=== PATIENT | male | born 1940 | race Caucasian/White ===

== ENCOUNTER 2018-01-04 13:58 | Inpatient (IN) ==
[2018-01-04] MEDS ORDERED: 0.9 % Sodium Chloride 1,000 ML IVC ONE (14:16)
[2018-01-04 14:56] LABS: Basophils % 0.3 %; Eosinophils # 0.2 K/mcL (0.0-0.6); Eosinophils % 1.3 %; Hematocrit 39.6 % (37.5-50.1); Hemoglobin 12.8 g/dL (12.9-16.9); Immature Granulocytes % 0.4 % (0-4); Lymphocytes # 1.2 K/mcL (0.6-4.6); Mean Corpuscular HGB Conc 32.3 g/dL (31.6-35.5); Mean Corpuscular Hemoglobin 27.9 pg (28.0-33.3); Mean Corpuscular Volume 86.3 fL (83.0-100.0); Mean Platelet Volume 11.6 fL (9.4-12.4); Monocytes # 0.7 K/mcL (0.0-1.3); Monocytes % 5.3 %; Neutrophils # 11.2 K/mcL (1.6-8.9); Platelet Count 191 K/mcL (140-400); Red Blood Count 4.59 M/mcL (4.19-5.50); Red Cell Distribution Width 13.9 % (11.5-14.5); Segmented Neutrophils % 83.7 %
--- NOTE | 2018-01-04 15:00 | Emergency Department Note ---
Disposition Clinical Impression: Hospital-acquired pneumonia, EUNICE (acute kidney injury) Syncope Qualifiers: Syncope type: unspecified Qualified Code(s): R55 - Syncope and collapse Disposition: Admitted As Inpatient Condition: Good General Adult HPI - General Chief complaint: ED Syncope Stated complaint: tremors Time Seen by Provider: 01/04/18 14:05 Source: EMS - History of Present Illness Pain Scale: 0 - Related Data Home Medications Medication Instructions Recorded Confirmed Aspirin [Lo-Dose Aspirin EC] 81 mg PO DAILY 01/04/18 01/04/18 Atorvastatin [Lipitor] 10 mg PO HS 01/04/18 01/04/18 Calcium Carbonate/Vitamin D3 1 tab PO DAILY 01/04/18 01/04/18 [Calcium 600 + Vit D Tablet] Carvedilol [Coreg] 25 mg PO BID 01/04/18 01/04/18 Duloxetine HCl [Cymbalta] 60 mg PO DAILY 01/04/18 01/04/18 Ergocalciferol (VITAMIN D2) 50,000 unit PO QWEEK 01/04/18 01/04/18 [Vitamin D2] Fluticasone/Salmeterol [Advair 1 puff IH BID 01/04/18 01/04/18 250-50 Diskus] Gabapentin [Neurontin] 100 mg PO BID 01/04/18 01/04/18 Galantamine HBr [Razadyne ER] 16 mg PO DAILY 01/04/18 01/04/18 Levothyroxine Sodium [Levoxyl] 150 mcg PO QAM 01/04/18 01/04/18 Lisinopril [Zestril] 20 mg PO BID 01/04/18 01/04/18 Memantine HCl [Memantine HCl ER] 14 mg PO DAILY 01/04/18 01/04/18 Mv,Fe,Min/Lutein [A Thru Z Select 1 tab PO DAILY 01/04/18 01/04/18 Women's Tablet] Omeprazole [PriLOSEC] 20 mg PO DAILY 01/04/18 01/04/18 Potassium Chloride [Klor-Con 10] 10 meq PO BID 01/04/18 01/04/18 Tamsulosin HCl [Flomax] 0.4 mg PO DAILY 01/04/18 01/04/18 Allergies Allergy/AdvReac Type Severity Reaction Status Date / Time No Known Allergies Allergy Verified 01/04/18 14:21 Past Medical History - Past Medical History Medical history: Reports: COPD, coronary artery disease, dementia, GERD, hypertension, renal disease, thyroid disease Psychiatric history: Reports: anxiety, depression - Social History Smoking Status: Unknown if ever smoked Smokeless Tobacco Status: No Alcohol use: Reports: none Drug use: Reports: none Physical Exam - General General appearance: alert, in no apparent distress Course Vital Signs Temperature 98.3 F 01/04/18 14:20 Pulse Rate 56 01/04/18 14:20 Respiratory Rate 16 01/04/18 14:20 Blood Pressure 102/61 01/04/18 14:20 O2 Sat by Pulse Oximetry 98 01/04/18 14:20 Temperature 98.3 F 01/04/18 14:20 Pulse Rate 55 01/04/18 16:53 Respiratory Rate 16 01/04/18 17:41 Blood Pressure 122/56 01/04/18 17:41 O2 Sat by Pulse Oximetry 100 01/04/18 16:53 Oxygen Delivery Oxygen Delivery Room Air Medical Decision Making - Lab Data Result diagrams: 01/04/18 14:38 01/04/18 14:38 Lab Results 01/04/18 01/04/18 01/04/18 Range/Units 14:38 14:38 14:38 WBC 13.3 H (4.3-11.1) K/mcL RBC 4.59 (4.19-5.50) M/mcL Hgb 12.8 L (12.9-16.9) g/dL Hct 39.6 (37.5-50.1) % MCV 86.3 (83.0-100.0) fL MCH 27.9 L (28.0-33.3) pg MCHC 32.3 (31.6-35.5) g/dL RDW 13.9 (11.5-14.5) % Plt Count 191 (140-400) K/mcL MPV 11.6 (9.4-12.4) fL Immature Gran % 0.4 (0-4) % Seg Neutrophils % 83.7 % Lymphocytes % 9.0 % Monocytes % 5.3 % Eosinophils % 1.3 % Basophils % 0.3 % Neutrophils # 11.2 H (1.6-8.9) K/mcL Lymphocytes # 1.2 (0.6-4.6) K/mcL Monocytes # 0.7 (0.0-1.3) K/mcL Eosinophils # 0.2 (0.0-0.6) K/mcL Basophils # 0.0 (0.0-0.2) K/mcL PT 12.1 (9.4-12.1) Seconds INR 1.1 APTT 27.7 (26.0-36.0) Seconds Sodium 138 (136-145) mEq/L Potassium 4.9 (3.5-5.1) mEq/L Chloride 107 (98-107) mEq/L Carbon Dioxide 22 L (23-29) mEq/L BUN 25 H (8-23) mg/dL Creatinine 1.39 H (0.70-1.30) mg/dL Est GFR ( Amer) > 60 (> 60) Est GFR (Non-Af Amer) 50 L (> 60) BUN/Creatinine Ratio 18 (6-26) Glucose 138 H (70-105) mg/dL Calculated Osmolality 293 (280-300) Calcium 9.6 (8.6-10.3) mg/dL Total Bilirubin 0.5 (0.3-1.0) mg/dL Direct Bilirubin 0.0 (0.0-0.2) mg/dL Indirect Bilirubin 0.5 (0.0-1.2) mg/dL AST 11 L (13-39) Units/L ALT 10 (7-52) Units/L Alkaline Phosphatase 121 H (34-104) Units/L Troponin I < 0.03 (< 0.04) ng/mL Serum Total Protein 7.4 (6.4-8.9) g/dL Albumin 4.1 (3.5-5.7) g/dL Globulin 3.3 (2.4-3.5) g/dL Albumin/Globulin Ratio 1.2 (1.1-2.2) TSH 1.490 (0.340-5.600) mcIU/mL Attestation Statement - Attestation Attestation: I examined this patient and my medical decision-making was reviewed with the Resident Physician. I agree with the documented findings, disposition and treatment plan as described except to the extent set forth below. Patient presents to the ED after a syncopal episode. Patient had a syncopal episode after eating lunch at the [facility] today. He passed out sitting at the table. Patient has had tremor when aroused ever since the episode. Unknown medical history. No family present. He is awake on examination. Answers questions verbally. Does have some intermittent shaking of his arm and leg. Plan. Cardiac workup. Head CT. Head CT shows hygroma versus chronic subdural. Discussed with neurology who states nothing acute to do her no indication for transfer. Patient will be treated for hospital-acquired pneumonia. Patient also mentions a possibility of a heart transplant. There is no documentation of this in his senior care paperwork. We called every contact listed on his form with no answer. It does list on his paperwork that he has coronary disease. Question if his sternotomy scar is from a possible bypass surgery. Patient is admitted to hospitalist.
[2018-01-04 15:02] LABS: INR 1.1; Prothrombin Time 12.1 Seconds (9.4-12.1)
[2018-01-04 15:05] LABS: Activated Partial Thrombo Time 27.7 Seconds (26.0-36.0)
[2018-01-04 15:19] LABS: Troponin I < 0.03 ng/mL (< 0.04)
[2018-01-04 15:20] LABS: Alanine Aminotransferase 10 Units/L (7-52); Albumin 4.1 g/dL (3.5-5.7); Albumin/Globulin Ratio 1.2 (1.1-2.2); Alkaline Phosphatase 121 Units/L (34-104); Aspartate Amino Transferase 11 Units/L (13-39); BUN/Creatinine Ratio 18 (6-26); Bilirubin,Indirect 0.5 mg/dL (0.0-1.2); Bilirubin,Total 0.5 mg/dL (0.3-1.0); Blood Urea Nitrogen 25 mg/dL (8-23); Calcium 9.6 mg/dL (8.6-10.3); Carbon Dioxide 22 mEq/L (23-29); Chloride 107 mEq/L (98-107); Globulin 3.3 g/dL (2.4-3.5); Glucose 138 mg/dL (70-105); Osmolality,Calculated 293 (280-300); Potassium 4.9 mEq/L (3.5-5.1); Sodium 138 mEq/L (136-145); Total Protein 7.4 g/dL (6.4-8.9); eGFR For Non-African Americans 50 (> 60)
[2018-01-04] MEDS ORDERED: Levofloxacin 750 MG/150 ML 750 MG/150 ML BAG IVPB ONE (15:40)
[2018-01-04] MEDS ORDERED: Piperacillin/Tazobactam 3.375 GM in 0.9 % Sodium Chloride Mini Bag 100 ML IVPB ONE (15:40)
--- NOTE | 2018-01-04 16:01 | Emergency Department Note ---
Disposition Clinical Impression: Hospital-acquired pneumonia, EUNICE (acute kidney injury) Syncope Qualifiers: Syncope type: unspecified Qualified Code(s): R55 - Syncope and collapse Disposition: Admitted As Inpatient Condition: Good Time of Disposition: 16:55 General Adult HPI - General Chief complaint: ED Syncope Stated complaint: tremors Time Seen by Provider: 01/04/18 14:05 Source: EMS Mode of arrival: EMS Limitations: no limitations Nursing Notes Reviewed: Yes Vital Signs Reviewed: Yes - History of Present Illness HPI Narrative: Patient presenting to the ED via [facility] with the chief complaint of a syncopal episode. States that he was eating lunch and was then found slumped over his chair. States that he has a history of Alzheimer's and his mental status is alert and oriented 3 and is at baseline. However, since he woke up he has been having intermittent tremors in his upper and lower extremities. EMS reports that he seems sleepy and when he is startled he has these tremors. Patient denies any headache or chest pain. No shortness of breath. States he feels about baseline other than just tired. No abdominal pain, nausea, vomiting or diarrhea. Pain Scale: 0 - Related Data Allergies Allergy/AdvReac Type Severity Reaction Status Date / Time No Known Allergies Allergy Verified 01/04/18 14:21 Review of Systems: As reviewed in the HPI. All other systems reviewed are negative or normal. Past Medical History - Past Medical History Medical history: Reports: COPD, coronary artery disease, dementia, GERD, hypertension, renal disease, thyroid disease Psychiatric history: Reports: anxiety, depression - Social History Smoking Status: Unknown if ever smoked Smokeless Tobacco Status: No Alcohol use: Reports: none Drug use: Reports: none Physical Exam CONSTITUTIONAL: [Chronically ill appearing, alert and in no acute distress] EYES: [EOMI, clear conjunctiva, PERRLA] HENT: [Normocephalic, atraumatic, dry mucus membranes, normal oropharynx] NECK: [normal inspection, full ROM, trachea midline, no obvious swelling] PULMONARY: [normal lung sounds bilaterally, normal chest rise and fall, no respiratory distress or stridor, no wheezes, no rales, no rhonchi CARDIOVASCULAR: [regular rate, regular rhythm, distal extremities are warm and well perfused] GASTROINSTESTINAL: [soft, non-tender, non-rigid, non-distended, no guarding, no rebound, normal bowel sounds] GENITOURINARY/RECTAL: [deferred] NEUROLOGIC: [Alert, oriented x3, normal speech, moves all extremities, does have intermittent tremors of B/L upper and lower ext. does not seem to be intention or at rest and is spontaneous] EXTREMITIES: [Normal inspection, full ROM, no tenderness, no pedal edema, normal capillary refill] MUSCULOSKELETAL: [no gross deformities, atraumatic] SKIN: [No cyanosis, no diaphoresis, + pallor, warm, no rash] PSYCHIATRIC: [unable to evaluate] - General General appearance: alert, in no apparent distress Course Course Narrative: Patient presenting with syncopal episode and new onset tremor. We will get syncope workup and likely admit. We will also get a head CT. Patient is alert and oriented now. There is some question that he has had open heart surgery. Unsure if this is a bypass surgery, but the patient states that he had a "heart transplant" in [place] 3 years ago. There is no documentation of this in his record. Nursing staff made multiple attempts to contact the numbers on the patient's paperwork and no one has answered. Patient's vitals have looked okay and chest x-ray looks okay other than a possible left-sided pneumonia. This could be related to aspiration after a syncopal episode at lunch. We will treat him for hospital-acquired pneumonia until further evaluation can be made. - Reevaluation(s) Reevaluation #2: Patient admitted to the hospitalist service under Dr. Castaneda. - Consultations Consultation #1: I spoke with the on-call neurologist, Dr. Gilliland. States that the head CT finding is not acute and would not prohibit the patient from being admitted and worked up here. Time: 16:51 Vital Signs Temperature 98.3 F 01/04/18 14:20 Pulse Rate 56 01/04/18 14:20 Respiratory Rate 16 01/04/18 14:20 Blood Pressure 102/61 01/04/18 14:20 O2 Sat by Pulse Oximetry 98 01/04/18 14:20 Temperature 98.3 F 01/04/18 14:20 Pulse Rate 55 01/04/18 16:53 Respiratory Rate 16 01/04/18 17:41 Blood Pressure 122/56 01/04/18 17:41 O2 Sat by Pulse Oximetry 100 01/04/18 16:53 Oxygen Delivery Oxygen Delivery Room Air Medical Decision Making - Medical Records Medical records reviewed: Yes I reviewed the patient's medical records. - Lab Data Lab results reviewed: Yes I reviewed the patient's lab results. Result diagrams: 01/04/18 14:38 01/04/18 14:38 Lab Results 01/04/18 01/04/18 01/04/18 Range/Units 14:38 14:38 14:38 WBC 13.3 H (4.3-11.1) K/mcL RBC 4.59 (4.19-5.50) M/mcL Hgb 12.8 L (12.9-16.9) g/dL Hct 39.6 (37.5-50.1) % MCV 86.3 (83.0-100.0) fL MCH 27.9 L (28.0-33.3) pg MCHC 32.3 (31.6-35.5) g/dL RDW 13.9 (11.5-14.5) % Plt Count 191 (140-400) K/mcL MPV 11.6 (9.4-12.4) fL Immature Gran % 0.4 (0-4) % Seg Neutrophils % 83.7 % Lymphocytes % 9.0 % Monocytes % 5.3 % Eosinophils % 1.3 % Basophils % 0.3 % Neutrophils # 11.2 H (1.6-8.9) K/mcL Lymphocytes # 1.2 (0.6-4.6) K/mcL Monocytes # 0.7 (0.0-1.3) K/mcL Eosinophils # 0.2 (0.0-0.6) K/mcL Basophils # 0.0 (0.0-0.2) K/mcL PT 12.1 (9.4-12.1) Seconds INR 1.1 APTT 27.7 (26.0-36.0) Seconds Sodium 138 (136-145) mEq/L Potassium 4.9 (3.5-5.1) mEq/L Chloride 107 (98-107) mEq/L Carbon Dioxide 22 L (23-29) mEq/L BUN 25 H (8-23) mg/dL Creatinine 1.39 H (0.70-1.30) mg/dL Est GFR ( Amer) > 60 (> 60) Est GFR (Non-Af Amer) 50 L (> 60) BUN/Creatinine Ratio 18 (6-26) Glucose 138 H (70-105) mg/dL Calculated Osmolality 293 (280-300) Calcium 9.6 (8.6-10.3) mg/dL Total Bilirubin 0.5 (0.3-1.0) mg/dL Direct Bilirubin 0.0 (0.0-0.2) mg/dL Indirect Bilirubin 0.5 (0.0-1.2) mg/dL AST 11 L (13-39) Units/L ALT 10 (7-52) Units/L Alkaline Phosphatase 121 H (34-104) Units/L Troponin I < 0.03 (< 0.04) ng/mL Serum Total Protein 7.4 (6.4-8.9) g/dL Albumin 4.1 (3.5-5.7) g/dL Globulin 3.3 (2.4-3.5) g/dL Albumin/Globulin Ratio 1.2 (1.1-2.2) TSH 1.490 (0.340-5.600) mcIU/mL - Radiology Data Radiology results reviewed: Yes I reviewed the patient's radiology results. - EKG Data EKG #1 EKG attestation: Yes I reviewed and interpreted this EKG. EKG results narrative: Sinus bradycardia, rate 47, normal intervals, left axis deviation, left anterior fascicular block, poor R-wave progression, no previous available, no acute ischemic changes
[2018-01-04] MEDS ORDERED: Naloxone 0.4 MG/ML INJ IVP PRN (17:00)
--- NOTE | 2018-01-04 17:43 | Internal Med History&Physical ---
Date of Encounter: 01/04/18 Time of Encounter: 17:40 Internal Medicine - H&P: HPI Chief complaint: Slumped over at mealtime Admitted From: Long-term Nursing Facility Plans for Post Hospital Care: [facility] History of present illness: Mr. Jasmine is a 77 year old male who resides in a prison facility with medical history of Alzheimer's dementia, COPD, coronary artery disease, GERD, hypertension, chronic kidney disease and hypothyroidism amongst many other medical comorbidities. History obtained from the patient even though he has a history of depression, no family at the bedside. Poor documentation from prison facility. Per documentation from prison facility patient said to have been slumped over at mealtime, vitals at that time showed systolic blood pressure 80 diastolic blood pressure 50. The patient himself reports no history of syncope , however reports being tremulous and nervous and shaky around 1:30 PM today. He does not recall any palpitations, dizziness or feeling of impending doom or chest pain prior to this incident. He denies fever or chills, he denies cough, he denies a known history of seizures. The patient denies any changes in his urinary or bowel habits. Questionable reliability of history due to documented history of dementia from the alf charts. The patient is full code per chart from the alf. Workup in the ER reveals a left sided pneumonia and pleural effusion, cardiomegaly, head CT showed a questionable right cerebral subdural hygroma versus chronic subdural hematoma. EKG on presentation showed sinus bradycardia with a ventricular rate of 47. The patient has leukocytosis with left shift, and creatinine is 1.37, baseline is unknown. Patient will be admitted inpatient for workup and management of healthcare associated pneumonia, and syncope. Per Chart from alf the patient is full code Past Med Surg Social Fam HX - Past Medical History Medical history: COPD, coronary artery disease, dementia, GERD, hypertension, renal disease, thyroid disease Additional medical history: anemia Psychiatric history: anxiety, depression - Past Surgical History Additional surgical history: Heart Transplant - Social History Smoking Status: Unknown if ever smoked Smokeless Tobacco Status: No Alcohol use: none Drug use: none Internal Medicine - H&P: Meds Aspirin [Lo-Dose Aspirin EC] 81 mg PO DAILY 01/04/18 [History] Atorvastatin [Lipitor] 10 mg PO HS 01/04/18 [History] Calcium Carbonate/Vitamin D3 [Calcium 600 + Vit D Tablet] 1 tab PO DAILY [History] Carvedilol [Coreg] 25 mg PO BID 01/04/18 [History] Duloxetine HCl [Cymbalta] 60 mg PO DAILY 01/04/18 [History] Ergocalciferol (VITAMIN D2) [Vitamin D2] 50,000 unit PO QWEEK 01/04/18 [History] Fluticasone/Salmeterol [Advair 250-50 Diskus] 1 puff IH BID 01/04/18 [History] Gabapentin [Neurontin] 100 mg PO BID 01/04/18 [History] Galantamine HBr [Razadyne ER] 16 mg PO DAILY 01/04/18 [History] Levothyroxine Sodium [Levoxyl] 150 mcg PO QAM 01/04/18 [History] Lisinopril [Zestril] 20 mg PO BID 01/04/18 [History] Memantine HCl [Memantine HCl ER] 14 mg PO DAILY 01/04/18 [History] Mv,Fe,Min/Lutein [A Thru Z Select Women's Tablet] 1 tab PO DAILY 01/04/18 [ History] Omeprazole [PriLOSEC] 20 mg PO DAILY 01/04/18 [History] Potassium Chloride [Klor-Con 10] 10 meq PO BID 01/04/18 [History] Tamsulosin HCl [Flomax] 0.4 mg PO DAILY 01/04/18 [History] 3 Allergy/AdvReac Type Severity Reaction Status Date / Time No Known Allergies Allergy Verified 01/04/18 14:21 All Systems PM: A 10-system review of systems was performed and is negative for pertinent findings except as documented above in the HPI. - Constitutional Constitutional: as per HPI - EENT Eyes: as per HPI Ears: as per HPI Nose, mouth and throat: as per HPI - Cardiovascular Cardiovascular ROS IM: as per HPI - Respiratory Respiratory: as per HPI - Gastrointestinal Gastrointestinal: as per HPI - Musculoskeletal Musculoskeletal ROS IM: as per HPI - Integumentary Integumentary IM: as per HPI - Neurological Neurological ROS: as per HPI - Hematologic/Lymphatic Hematologic/Lymphatic: as per HPI - Constitutional Vitals: Temp Pulse Resp BP Pulse Ox 98.3 F 55 16 134/61 100 01/04/18 14:20 01/04/18 16:53 01/04/18 16:53 01/04/18 16:53 01/04/18 16:53 General: Not in any form of distress Head: atraumatic, normocephalic, Eye: normal appearance, PERRL, no scleral icterus, no conjunctival injection Neck: normal inspection, trachea midline, full ROM, no carotid bruits Respiratory: Good respiratory effort. Normal breath sounds. No wheezing or crackles. Cardiovascular: Regular rate and rhythm. S1 and S2, No clicks, rubs, gallops, or murmurs. No pedal edema. No JVD Abdomen: Abdomen is soft, non-tender, bowel sounds present in all quadrants. Musculoskeletal: Spontaneously moving all extremities, no signs of infection, no joint swelling Skin: No petechia or ecchymosis, no rash Neuro: Alert , oriented to time, place and person, normal cranial nerves, no focal deficits, moves all extremities spontaneously, gait not tested Psych: Patient's affect is normal Exam: General: Not in any form of distress Head: atraumatic, normocephalic, Eye: normal appearance, PERRL, no scleral icterus, no conjunctival injection Neck: normal inspection, trachea midline, full ROM, no carotid bruits Respiratory: Good respiratory effort. Normal breath sounds. No wheezing or crackles. Cardiovascular: Regular rate and rhythm. S1 and S2, No clicks, rubs, gallops, or murmurs. No pedal edema. No JVD Abdomen: Abdomen is soft, non-tender, bowel sounds present in all quadrants. Musculoskeletal: Spontaneously moving all extremities, no signs of infection, no joint swelling Skin: No petechia or ecchymosis, no rash Neuro: Alert , oriented to time, place and person, normal cranial nerves, no focal deficits, moves all extremities spontaneously, gait not tested Psych: Patient's affect is normal Internal Med - H&P Results - Labs CBC & Chem 7: 01/04/18 14:38 01/04/18 14:38 - Assessment and plan (1) Pneumonia Current Visit: Yes Status: Acute Assessment and plan: Patient reports history of tremulousness and shakiness, no fever, no cough However chest x-ray significant for suspected aspiration pneumonia Patient resides in a prison facility Blood culture have been drawn Received Levaquin, Zosyn and vancomycin in the ER Continue cefepime and vancomycin only. De-escalate antibiotics with culture reports. Obtain urine Legionella and streptococcal antigen. Patient is told hypoxic. Qualifiers: Pneumonia type: aspiration pneumonia Aspiration pneumonia type: unspecified Laterality: left Lung location: unspecified part of lung Qualified Code(s): J69.0 - Pneumonitis due to inhalation of food and vomit (2) Dementia Current Visit: Yes Status: Chronic Assessment and plan: Continue home medications Qualifiers: Dementia type: Alzheimer's disease Alzheimer's disease onset: unspecified onset Dementia behavioral disturbance: without behavioral disturbance Qualified Code(s): G30.9 - Alzheimer's disease, unspecified; F02.80 - Dementia in other diseases classified elsewhere without behavioral disturbance (3) Syncope Current Visit: Yes Status: Acute Assessment and plan: Etiology unknown. History of syncope is also questionable and not confirmed. Breathing M CAT scan noted for subdural hygroma versus chronic subdural hematoma. Obtain brain MRI EKG with sinus bradycardia patient is on beta blockers at home Obtain echocardiogram and carotid Doppler. Fall precautions Keep patient on telemetry Qualifiers: Syncope type: unspecified Qualified Code(s): R55 - Syncope and collapse (4) CKD (chronic kidney disease) Current Visit: Yes Status: Chronic Assessment and plan: Patient with known chronic kidney disease stage unknown Presenting creatinine 1.39 Obtain baseline from prison facility Avoid nephrotoxins Continue to monitor Qualifiers: Chronic kidney disease stage: unspecified stage Qualified Code(s): N18.9 - Chronic kidney disease, unspecified (5) COPD (chronic obstructive pulmonary disease) Current Visit: Yes Status: Chronic Assessment and plan: No signs of exacerbation at this time. Duo nebs when necessary Continue home MDIs Qualifiers: COPD type: unspecified COPD Qualified Code(s): J44.9 - Chronic obstructive pulmonary disease, unspecified (6) HTN (hypertension) Current Visit: Yes Status: Chronic Assessment and plan: continue home meds Qualifiers: Hypertension type: essential hypertension Qualified Code(s): I10 - Essential (primary) hypertension (7) HLD (hyperlipidemia) Current Visit: Yes Status: Chronic Assessment and plan: continue home meds Qualifiers: Hyperlipidemia type: unspecified Qualified Code(s): E78.5 - Hyperlipidemia , unspecified (8) Anemia Current Visit: Yes Status: Chronic Assessment and plan: HB baseline unknown Continue to monitor Qualifiers: Anemia type: unspecified type Qualified Code(s): D64.9 - Anemia, unspecified (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
[2018-01-04] MEDS: Gabapentin 100 MG CAPSULE PO SCH (21:24)
[2018-01-04] MEDS: Lisinopril 20 MG TABLET PO SCH (21:24)
[2018-01-04] MEDS ORDERED: Budesonide/Formoterol 80/4.5 MDI IH SCH (22:00)
[2018-01-05] MEDS: Cefepime HCl 1,000 MG in Water for inj. (sterile) 20 ML 10 ML IVP SCH ×3 (00:20→16:57)
[2018-01-05 00:43] LABS: Bilirubin,Urine Negative (Negative); Blood,Urine Negative (Negative); Clarity,Urine Clear (Clear); Color,Urine Yellow (Yellow); Glucose,Urine (UA) Normal (Normal); Ketones,Urine Negative (Negative); Leukocyte Esterase,Urine Small (Negative); Nitrite,Urine Negative (Negative); Protein,Urine Negative (Neg-Trace); Specific Gravity,Urine > 1.030 (1.010-1.025); Urobilinogen,Urine Normal (Normal)
[2018-01-05 00:45] LABS: Bacteria,Urine None Seen per hpf (None-Few); Hyaline Casts,Urine None Seen per lpf (None-Few); RBC,Urine 0-3 per hpf (0-3); Squamous Epithelial Cell,Urine Moderate per lpf (None-Few); WBC,Urine 15-30 per hpf (0-3)
[2018-01-05 05:03] LABS: Basophils % 0.3 %; Eosinophils # 0.4 K/mcL (0.0-0.6); Eosinophils % 3.4 %; Hematocrit 37.8 % (37.5-50.1); Hemoglobin 12.2 g/dL (12.9-16.9); Immature Granulocytes % 0.3 % (0-4); Lymphocytes # 1.9 K/mcL (0.6-4.6); Lymphocytes % 16.6 %; Mean Corpuscular HGB Conc 32.3 g/dL (31.6-35.5); Mean Corpuscular Hemoglobin 28.2 pg (28.0-33.3); Mean Corpuscular Volume 87.5 fL (83.0-100.0); Mean Platelet Volume 11.8 fL (9.4-12.4); Monocytes # 0.9 K/mcL (0.0-1.3); Monocytes % 8.1 %; Neutrophils # 8.2 K/mcL (1.6-8.9); Platelet Count 177 K/mcL (140-400); Red Blood Count 4.32 M/mcL (4.19-5.50); Segmented Neutrophils % 71.3 %
[2018-01-05 05:26] LABS: Potassium 4.8 mEq/L (3.5-5.1)
[2018-01-05] MEDS: *HR* Enoxaparin 40 MG/0.4 ML SYRINGE SQ SCH (06:07)
[2018-01-05] MEDS: Cholecalciferol (D-3) 1,000 UNIT TABLET PO SCH (09:53)
[2018-01-05] MEDS: Multivit/Ca/Min/Fe/FA 1 TAB TABLET PO SCH (09:53)
[2018-01-05] MEDS: Lisinopril 20 MG TABLET PO SCH ×2 (09:53→21:12)
[2018-01-05] MEDS: Gabapentin 100 MG CAPSULE PO SCH ×2 (09:54→21:12)
[2018-01-05] MEDS: Aspirin Enteric Coated 81 MG Tablet PO SCH (09:54)
[2018-01-05] MEDS: GALANTAMINE HBR 16 MG PO SCH (09:56)
--- NOTE | 2018-01-05 10:41 | Internal Med Progress Note ---
Hospitalist Progress Note - Encounter Date of Encounter: 01/05/18 Time of Encounter: 10:40 - Subjective Interval History: Seen and examined at the bedside No new complains No family at the bedside ECHO being done at time of eval - Exam Vitals: Temp Pulse Resp BP Pulse Ox 97.5 F L 63 18 142/76 98 01/05/18 08:20 01/05/18 08:20 01/05/18 08:20 01/05/18 08:20 01/05/18 08:20 Exam: General: Not in any form of distress Head: atraumatic, normocephalic, Eye: normal appearance, PERRL, no scleral icterus, no conjunctival injection Neck: normal inspection, trachea midline, full ROM, no carotid bruits Respiratory: Good respiratory effort. Normal breath sounds. No wheezing or crackles. Cardiovascular: Regular rate and rhythm. S1 and S2, No clicks, rubs, gallops, or murmurs. No pedal edema. No JVD Abdomen: Abdomen is soft, non-tender, bowel sounds present in all quadrants. Musculoskeletal: Spontaneously moving all extremities, no signs of infection, no joint swelling Skin: No petechia or ecchymosis, no rash Neuro: Alert , oriented to time, place and person, normal cranial nerves, no focal deficits, moves all extremities spontaneously, gait not tested Psych: Patient's affect is normal - Assessment and Plan (1) Pneumonia Current Visit: Yes Status: Acute Assessment and Plan: Patient reports history of tremulousness and shakiness, no fever, no cough However chest x-ray significant for suspected aspiration pneumonia Patient resides in a [facility] facility Blood culture have been drawn Received Levaquin, Zosyn and vancomycin in the ER Continue cefepime only. Low risk for MRSA patient is not septic or hypoxic De-escalate antibiotics with culture reports. Negative urine Legionella and streptococcal antigen (2) Dementia Current Visit: Yes Status: Chronic Assessment and Plan: Continue home medications (3) Syncope Current Visit: Yes Status: Acute Assessment and Plan: Etiology unknown. History of syncope is also questionable and not confirmed. Head CAT scan noted for subdural hygroma versus chronic subdural hematoma. Brain MRI with no infarct EKG with sinus bradycardia patient is on beta blockers at home Follow echocardiogram and carotid Doppler. Fall precautions Keep patient on telemetry (4) CKD (chronic kidney disease) Current Visit: Yes Status: Chronic Assessment and Plan: Patient with known chronic kidney disease stage unknown Presenting creatinine 1.39 Continue to monitor Avoid nephrotoxins Continue to monitor (5) COPD (chronic obstructive pulmonary disease) Current Visit: Yes Status: Chronic Assessment and Plan: No signs of exacerbation at this time. Duo nebs when necessary Continue home MDIs (6) HTN (hypertension) Current Visit: Yes Status: Chronic Assessment and Plan: continue home meds (7) HLD (hyperlipidemia) Current Visit: Yes Status: Chronic Assessment and Plan: continue home meds (8) Anemia Current Visit: Yes Status: Chronic Assessment and Plan: HB baseline unknown Continue to monitor (9) Subdural hygroma Current Visit: Yes Status: Chronic Assessment and Plan: brain MRI does not show this, no acute processes, on brain MRI Continue to monitor - Time Spent with Patient Total time spent is greater than 50% in coordination of care (as documented) at patient's floor/unit and/or counseling patient: Plan of Care Discussed with: patient Internal Medicine: Result - Labs CBC & Chem 7: 01/05/18 04:24 01/05/18 04:24 Labs: Short CBC 01/05/18 Range/Units 04:24 WBC 11.5 H (4.3-11.1) K/mcL Hgb 12.2 L (12.9-16.9) g/dL Hct 37.8 (37.5-50.1) % Plt Count 177 (140-400) K/mcL Neutrophils # 8.2 (1.6-8.9) K/mcL BMP 01/05/18 04:24 Sodium 139 Potassium 4.8 Chloride 109 H Carbon Dioxide 25 BUN 23 Creatinine 1.44 H Glucose 97 Calcium 9.0 Urine 01/05/18 Range/Units 00:02 Urine Color Yellow (Yellow) Urine Clarity Clear (Clear) Urine pH 6.0 (5.0-8.0) pH Units Ur Specific [place] > 1.030 H (1.010-1.025) Urine Protein Negative (Neg-Trace) mg/dL Urine Glucose (UA) Normal (Normal) mg/dL - ABG Interpretation ABG results: PT/INR, D-dimer PT 12.1 Seconds (9.4-12.1) 01/04/18 14:38 - Impressions Impressions Brain MRI 08/25/18 17:04 IMPRESSION: 1. No acute intracranial abnormality. No acute infarct. 2. [id number] global parenchymal volume loss with mild chronic microvascular ischemic change. 3. Right mastoid effusion. D/ / Gilbert Smith MD / Gilbert Smith MD Interpreting Provider: Gilbert Smith MD Consult Discharge Plan - Plan Referrals: NONE,PCP [Primary Care Provider] - (1) Pneumonia Qualifiers: Pneumonia type: aspiration pneumonia Aspiration pneumonia type: unspecified Laterality: left Lung location: unspecified part of lung Qualified Code(s): J69.0 - Pneumonitis due to inhalation of food and vomit (2) Dementia Qualifiers: Dementia type: Alzheimer's disease Alzheimer's disease onset: unspecified onset Dementia behavioral disturbance: without behavioral disturbance Qualified Code(s): G30.9 - Alzheimer's disease, unspecified; F02.80 - Dementia in other diseases classified elsewhere without behavioral disturbance (3) Syncope Qualifiers: Syncope type: unspecified Qualified Code(s): R55 - Syncope and collapse (4) CKD (chronic kidney disease) Qualifiers: Chronic kidney disease stage: unspecified stage Qualified Code(s): N18.9 - Chronic kidney disease, unspecified (5) COPD (chronic obstructive pulmonary disease) Qualifiers: COPD type: unspecified COPD Qualified Code(s): J44.9 - Chronic obstructive pulmonary disease, unspecified (6) HTN (hypertension) Qualifiers: Hypertension type: essential hypertension Qualified Code(s): I10 - Essential (primary) hypertension (7) HLD (hyperlipidemia) Qualifiers: Hyperlipidemia type: unspecified Qualified Code(s): E78.5 - Hyperlipidemia, unspecified (8) Anemia Qualifiers: Anemia type: unspecified type Qualified Code(s): D64.9 - Anemia, unspecified
[2018-01-06] MEDS: Cefepime HCl 1,000 MG in Water for inj. (sterile) 20 ML 10 ML IVP SCH ×2 (00:05→09:34)
[2018-01-06] MEDS: *HR* Enoxaparin 40 MG/0.4 ML SYRINGE SQ SCH (06:01)
[2018-01-06] MEDS: Budesonide/Formoterol 80/4.5 MDI IH SCH ×2 (07:52→19:57)
[2018-01-06] MEDS: Lisinopril 20 MG TABLET PO SCH ×2 (09:32→21:30)
[2018-01-06] MEDS: Cholecalciferol (D-3) 1,000 UNIT TABLET PO SCH (09:32)
[2018-01-06] MEDS: Multivit/Ca/Min/Fe/FA 1 TAB TABLET PO SCH (09:32)
[2018-01-06] MEDS: Aspirin Enteric Coated 81 MG Tablet PO SCH (09:32)
[2018-01-06] MEDS: Gabapentin 100 MG CAPSULE PO SCH ×2 (09:32→21:30)
[2018-01-06] MEDS: GALANTAMINE HBR 16 MG PO SCH (09:35)
[2018-01-06] MEDS ORDERED: levoFLOXacin 750 MG TABLET PO SCH (12:00)
--- NOTE | 2018-01-06 13:34 | Internal Med Progress Note ---
Hospitalist Progress Note - Encounter Date of Encounter: 01/06/18 Time of Encounter: 13:32 - Subjective Interval History: Seen and examined at the bedside No new complains No family at the bedside He was admitted for evaluation of syncope, incidental finding of PNA Per RN, patient sometimes looks like he is choking when taking his meds, Speech eval requested ECHO and Carotid doppler unremarkable Plan is to decrease dose of coreg, and change antibiotics to oral, SW eval for return to SNF - Exam Vitals: Temp Pulse Resp BP Pulse Ox 98.0 F 65 16 129/84 95 01/06/18 08:03 01/06/18 08:03 01/06/18 08:03 01/06/18 08:03 01/06/18 07:52 Exam: General: Not in any form of distress Head: atraumatic, normocephalic, Eye: normal appearance, PERRL, no scleral icterus, no conjunctival injection Neck: normal inspection, trachea midline, full ROM, no carotid bruits Respiratory: Good respiratory effort. Normal breath sounds. No wheezing or crackles. Cardiovascular: Regular rate and rhythm. S1 and S2, No clicks, rubs, gallops, or murmurs. No pedal edema. No JVD Abdomen: Abdomen is soft, non-tender, bowel sounds present in all quadrants. Musculoskeletal: Spontaneously moving all extremities, no signs of infection, no joint swelling Skin: No petechia or ecchymosis, no rash Neuro: Alert , oriented to time, place and person, normal cranial nerves, no focal deficits, moves all extremities spontaneously, gait not tested Psych: Patient's affect is normal - Assessment and Plan (1) Pneumonia Current Visit: Yes Status: Acute Assessment and Plan: Patient reports history of tremulousness and shakiness, no fever, no cough However chest x-ray significant for suspected aspiration pneumonia Patient resides in a residential facility Blood culture have been drawn-prelim negative Received Levaquin, Zosyn and vancomycin in the ER Cefepime given X2 days Low risk for MRSA patient is not septic or hypoxic Change to levaquin po Negative urine Legionella and streptococcal antigen (2) Dementia Current Visit: Yes Status: Chronic Assessment and Plan: Continue home medications (3) Syncope Current Visit: Yes Status: Acute Assessment and Plan: Etiology unknown. History of syncope is also questionable and not confirmed. Head CAT scan noted for subdural hygroma versus chronic subdural hematoma. Brain MRI with no infarct EKG with sinus bradycardia patient is on beta blockers at home ECHO and Carotid doppler unremarkable Fall precautions Keep patient on telemetry (4) CKD (chronic kidney disease) Current Visit: Yes Status: Chronic Assessment and Plan: Patient with known chronic kidney disease stage unknown Presenting creatinine 1.39 Continue to monitor Avoid nephrotoxins Continue to monitor (5) COPD (chronic obstructive pulmonary disease) Current Visit: Yes Status: Chronic Assessment and Plan: No signs of exacerbation at this time. Duo nebs when necessary Continue home MDIs (6) HTN (hypertension) Current Visit: Yes Status: Chronic Assessment and Plan: continue home meds (7) HLD (hyperlipidemia) Current Visit: Yes Status: Chronic Assessment and Plan: continue home meds (8) Anemia Current Visit: Yes Status: Chronic Assessment and Plan: HB baseline unknown Continue to monitor (9) Subdural hygroma Current Visit: Yes Status: Chronic Assessment and Plan: brain MRI does not show this, no acute processes, on brain MRI Continue to monitor - Time Spent with Patient Total time spent is greater than 50% in coordination of care (as documented) at patient's floor/unit and/or counseling patient: Plan of Care Discussed with: patient Internal Medicine: Result - Labs CBC & Chem 7: 01/05/18 04:24 01/05/18 04:24 - ABG Interpretation ABG results: PT/INR, D-dimer PT 12.1 Seconds (9.4-12.1) 01/04/18 14:38 - Impressions Impressions Echocardiogram 01/05/18 17:05 Impressions: LVEF 60%. Indeterminate diastolic function. Normal right ventricular structure and function. Possible bioprosthetic aortic valve with mild increase in gradients. Mild-moderate tricuspid regurgitation. No pulmonary hypertension by TR gradient provided. No prior echo for comparison. Left Ventricular Wall Motion: Rest Echo Findings All wall segments showed normal motion. Findings: Study Quality * Technically adequate exam. ECG Findings * Normal sinus rhythm. Left Ventricle * LVEF 60%. * Normal LV chamber size, wall thickness and function. * Indeterminate diastolic function. * No LVOTobstruction. Right Ventricle * Normal right ventricular structure and function. Left Atrium * Severely dilated left atrium. Right Atrium * Normal right atrial size. Mitral Valve * Normal mitral valve structure. * No mitral stenosis. * No mitral regurgitation. Aortic Valve * No aortic regurgitation. * Aortic valve not well visualized. * Possible bioprosthetic aortic valve with mild increase in gradients. Tricuspid Valve * Normal tricuspid valve structure. * Mild-moderate tricuspid regurgitation. Pulmonic Valve * Pulmonic valve is not well visualized. * No pulmonic stenosis. * No pulmonic regurgitation. Pulmonary Artery * Pulmonary artery not well visualized. Aorta * Normally sized aortic root. Pericardium * There is no pericardial effusion present. Interatrial Septum * Interatrial septum not well evaluated. IVC * The IVC is not well evaluated. Consult Discharge Plan - Plan Referrals: NONE,PCP [Non-Partnered Physician] - (1) Pneumonia Qualifiers: Pneumonia type: aspiration pneumonia Aspiration pneumonia type: unspecified Laterality: left Lung location: unspecified part of lung Qualified Code(s): J69.0 - Pneumonitis due to inhalation of food and vomit (2) Dementia Qualifiers: Dementia type: Alzheimer's disease Alzheimer's disease onset: unspecified onset Dementia behavioral disturbance: without behavioral disturbance Qualified Code(s): G30.9 - Alzheimer's disease, unspecified; F02.80 - Dementia in other diseases classified elsewhere without behavioral disturbance (3) Syncope Qualifiers: Syncope type: unspecified Qualified Code(s): R55 - Syncope and collapse (4) CKD (chronic kidney disease) Qualifiers: Chronic kidney disease stage: unspecified stage Qualified Code(s): N18.9 - Chronic kidney disease, unspecified (5) COPD (chronic obstructive pulmonary disease) Qualifiers: COPD type: unspecified COPD Qualified Code(s): J44.9 - Chronic obstructive pulmonary disease, unspecified (6) HTN (hypertension) Qualifiers: Hypertension type: essential hypertension Qualified Code(s): I10 - Essential (primary) hypertension (7) HLD (hyperlipidemia) Qualifiers: Hyperlipidemia type: unspecified Qualified Code(s): E78.5 - Hyperlipidemia, unspecified (8) Anemia Qualifiers: Anemia type: unspecified type Qualified Code(s): D64.9 - Anemia, unspecified
[2018-01-07 05:15] LABS: Basophils % 0.5 %; Eosinophils # 0.4 K/mcL (0.0-0.6); Eosinophils % 5.8 %; Hematocrit 35.9 % (37.5-50.1); Hemoglobin 11.5 g/dL (12.9-16.9); Immature Granulocytes % 0.3 % (0-4); Lymphocytes # 1.7 K/mcL (0.6-4.6); Mean Corpuscular Hemoglobin 28.3 pg (28.0-33.3); Mean Corpuscular Volume 88.2 fL (83.0-100.0); Mean Platelet Volume 11.9 fL (9.4-12.4); Monocytes # 0.7 K/mcL (0.0-1.3); Monocytes % 8.9 %; Neutrophils # 4.8 K/mcL (1.6-8.9); Platelet Count 182 K/mcL (140-400); Red Blood Count 4.07 M/mcL (4.19-5.50); Segmented Neutrophils % 62.5 %
[2018-01-07] MEDS: *HR* Enoxaparin 40 MG/0.4 ML SYRINGE SQ SCH (05:33)
[2018-01-07 05:37] LABS: Calcium 9.1 mg/dL (8.6-10.3); Potassium 4.1 mEq/L (3.5-5.1)
[2018-01-07 07:08] VITALS: BP 150/70
[2018-01-07] MEDS: Budesonide/Formoterol 80/4.5 MDI IH SCH (07:52)
--- NOTE | 2018-01-07 08:54 | Internal Med Progress Note ---
Hospitalist Progress Note - Encounter Date of Encounter: 01/07/18 - Exam Vitals: Temp Pulse Resp BP Pulse Ox 98.0 F 52 15 150/70 94 01/07/18 07:04 01/07/18 07:04 01/07/18 07:53 01/07/18 07:04 01/07/18 07:53 - Time Spent with Patient Total time spent is greater than 50% in coordination of care (as documented) at patient's floor/unit and/or counseling patient: Internal Medicine: Result - Labs CBC & Chem 7: 01/07/18 03:58 01/07/18 03:58 Labs: Short CBC 01/07/18 Range/Units 03:58 WBC 7.7 (4.3-11.1) K/mcL Hgb 11.5 L (12.9-16.9) g/dL Hct 35.9 L (37.5-50.1) % Plt Count 182 (140-400) K/mcL Neutrophils # 4.8 (1.6-8.9) K/mcL BMP 01/07/18 03:58 Sodium 141 Potassium 4.1 Chloride 109 H Carbon Dioxide 25 BUN 21 Creatinine 1.42 H Glucose 90 Calcium 9.1 - ABG Interpretation ABG results: PT/INR, D-dimer PT 12.1 Seconds (9.4-12.1) 01/04/18 14:38 Consult Discharge Plan - Plan Referrals: NONE,PCP [Non-Partnered Physician] -
[2018-01-07] MEDS: Gabapentin 100 MG CAPSULE PO SCH (09:57)
[2018-01-07] MEDS: Aspirin Enteric Coated 81 MG Tablet PO SCH (09:57)
[2018-01-07] MEDS: Multivit/Ca/Min/Fe/FA 1 TAB TABLET PO SCH (09:57)
[2018-01-07] MEDS: Lisinopril 20 MG TABLET PO SCH (09:57)
[2018-01-07] MEDS: Cholecalciferol (D-3) 1,000 UNIT TABLET PO SCH (09:58)
[2018-01-07] MEDS: GALANTAMINE HBR 16 MG PO SCH (09:58)
--- NOTE | 2018-01-07 13:09 | Discharge Summary ---
<Ron Oliva - Last Filed: 01/07/18 16:38> - NOTES TO OUTPATIENT PROVIDER Notes to Outpatient Provider: Mr. Jasmine was admitted for syncope workup and incidental PNA. Received 2 days of cefepime, de-escalated to levaquin; plan for outpatient antibiotics is 2 more doses of Levaquin 750mg, on the and 10 of January to complete his course. Date of Encounter: 01/07/18 Time of Encounter: 09:30 - Discharge Diagnosis (1) Pneumonia Priority: Primary Status: Acute Qualifiers: Pneumonia type: aspiration pneumonia Aspiration pneumonia type: unspecified Laterality: left Lung location: unspecified part of lung Qualified Code(s): J69.0 - Pneumonitis due to inhalation of food and vomit (2) Dementia Priority: Secondary Status: Chronic Qualifiers: Dementia type: Alzheimer's disease Alzheimer's disease onset: unspecified onset Dementia behavioral disturbance: without behavioral disturbance Qualified Code(s): G30.9 - Alzheimer's disease, unspecified; F02.80 - Dementia in other diseases classified elsewhere without behavioral disturbance (3) Syncope Priority: Secondary Status: Acute Qualifiers: Syncope type: unspecified Qualified Code(s): R55 - Syncope and collapse (4) CKD (chronic kidney disease) Priority: Secondary Status: Chronic Qualifiers: Chronic kidney disease stage: unspecified stage Qualified Code(s): N18.9 - Chronic kidney disease, unspecified (5) COPD (chronic obstructive pulmonary disease) Priority: Secondary Status: Chronic Qualifiers: COPD type: unspecified COPD Qualified Code(s): J44.9 - Chronic obstructive pulmonary disease, unspecified (6) HTN (hypertension) Priority: Secondary Status: Chronic Qualifiers: Hypertension type: essential hypertension Qualified Code(s): I10 - Essential (primary) hypertension (7) HLD (hyperlipidemia) Priority: Secondary Status: Chronic Qualifiers: Hyperlipidemia type: unspecified Qualified Code(s): E78.5 - Hyperlipidemia , unspecified (8) Anemia Priority: Secondary Status: Chronic Qualifiers: Anemia type: unspecified type Qualified Code(s): D64.9 - Anemia, unspecified Hospital course: Mr. Jasmine is a 77 year old male, medical history significant for SNF residence, AD, COPD, CAD, CKD; admitted for evaluation of syncope and incidental finding of PNA on exam. Patient did not demonstrate repeat of reported unresponsiveness on initial presentation from SNF, echocardiogram and carotid doppler negative. MRI without infarct. Patient tolerated meals without dysphagia. Swallow eval pending today prior to discharge. Urine negative for Legionella and strep antigen. Patient received Cefepime x 2 days on admission de -escalated to Levaquin po. CKD remained at baseline near 1.4, no sign of COPD exacerbation this admission. Mr. Jasmine will be returning to his previous SNF where he has placement--confirmed by manager social. He is being discharged with Coreg decreased to 12.5 BID from 25, as well as Levaquin (2 does) to be taken on 01/08 and 01/10 to complete his abx course. Discharge discussed with: patient, nurse, social work - Time Spent with Patient Total time spent providing and/or coordinating discharge services: Greater than 30 minutes - Discharge Medications Prescriptions: Carvedilol [Coreg] 12.5 mg PO BIDWM #60 tablet levoFLOXacin [Levaquin] 750 mg PO Q48H #2 tablet Home Medications: Atorvastatin [Lipitor] 10 mg PO HS 01/04/18 [History] Calcium Carbonate/Vitamin D3 [Calcium 600 + Vit D Tablet] 1 tab PO DAILY [History] Duloxetine HCl [Cymbalta] 60 mg PO DAILY 01/04/18 [History] Ergocalciferol (VITAMIN D2) [Vitamin D2] 50,000 unit PO QWEEK 01/04/18 [History] Fluticasone/Salmeterol [Advair 250-50 Diskus] 1 puff IH BID 01/04/18 [History] Gabapentin [Neurontin] 100 mg PO BID 01/04/18 [History] Galantamine HBr [Razadyne ER] 16 mg PO DAILY 01/04/18 [History] Levothyroxine Sodium [Levoxyl] 150 mcg PO QAM 01/04/18 [History] Lisinopril [Zestril] 20 mg PO BID 01/04/18 [History] Memantine HCl [Memantine HCl ER] 14 mg PO DAILY 01/04/18 [History] Mv,Fe,Min/Lutein [A Thru Z [employer] Tablet] 1 tab PO DAILY 01/04/18 [ History] Omeprazole [PriLOSEC] 20 mg PO DAILY 01/04/18 [History] Potassium Chloride [Klor-Con 10] 10 meq PO BID 01/04/18 [History] Aspirin Enteric Coated [Aspirin EC] 81 mg PO DAILY tablet. 01/07/18 [Rx] Atorvastatin [Lipitor] 10 mg PO HS tablet 01/07/18 [Rx] Carvedilol [Coreg] 12.5 mg PO BIDWM #60 tablet 01/07/18 [Rx] DULoxetine [Cymbalta] 60 mg PO DAILY capsule. 01/07/18 [Rx] Enoxaparin [Lovenox] 40 mg SQ 0600 syringe 01/07/18 [Rx] Tamsulosin [Flomax] 0.4 mg PO DAILY capsule 01/07/18 [Rx] levoFLOXacin [Levaquin] 750 mg PO Q48H #2 tablet 01/07/18 [Rx] Allergies/Adverse Reactions: 3 Allergy/AdvReac Type Severity Reaction Status Date / Time No Known Allergies Allergy Verified 01/04/18 14:21 Date of admission: 01/04/18 18:09 Primary care physician: Edwin Wolf MD Consults: 01/04/18 19:11 Consult to Nutrition [CONS] Routine Comment: Consulting Provider: NUTRITION Reason for Dietary Consult: MST Score Consult to [employer] [CONS] Routine Reason for SW Consult: patient from [place] 01/07/18 12:01 Consult to Speech Therapy [CONS] Routine Comment: Evaluate, develop and implement POC Reason for Consult: RN reporting repeat short duration dyspnea after PO meds , patient denying aspiration or choking, however history uncertain- AD patient. thank you. Call Completed: No Discharging clinician: Ron Oliva Anticipated date of discharge: 01/07/18 - Constitutional Vitals: Temp Pulse Resp BP Pulse Ox 98.0 F 52 15 150/70 94 01/07/18 07:04 01/07/18 07:04 01/07/18 07:53 01/07/18 07:04 01/07/18 07:53 General appearance: Present: pleasant, no acute distress, answers questions appropriately Exam: please see exam section - Head Head exam: Present: atraumatic - Neck Neck exam general surgery: Present: supple, trachea midline. Absent: lymphadenopathy - Respiratory Respiratory exam: Absent: accessory muscle use, rales, rhonchi, wheezes, tachypnea - Cardiovascular Cardiovascular exam: Present: bradycardia (Rate avg'ing in 50s - 60s), +S1, + S2. Absent: diastolic murmur, gallop, rubs, systolic murmur - GI/Abdominal GI/Abdominal exam: Present: normal bowel sounds, soft, no peritoneal signs. Absent: distended, tenderness - Psychiatric Psychiatric exam: Present: normal affect, normal mood - Patient Status Disposition: Transfer SNF Condition: Good Functional capacity at discharge: independent ambulation Overall status at discharge: patient is progressing back to baseline - Discharge Instructions Instructions: Levofloxacin (By mouth), Carvedilol (By mouth), Syncope (DC), Chronic Obstructive Pulmonary Disease (DC), Chronic Hypertension (DC), Anemia ( GEN), Pneumonia (DC) Follow Up With: NONE,PCP [Non-Partnered Physician] - - Diet and Activity Activity: increase activity as tolerated Diet: advance to your usual diet <Reynaldo Ram - Last Filed: 01/07/18 16:51> Date of Encounter: 01/07/18 - Discharge Diagnosis (1) Pneumonia Status: Acute Qualifiers: Pneumonia type: aspiration pneumonia Aspiration pneumonia type: unspecified Laterality: left Lung location: unspecified part of lung Qualified Code(s): J69.0 - Pneumonitis due to inhalation of food and vomit (2) Dementia Status: Chronic Qualifiers: Dementia type: Alzheimer's disease Alzheimer's disease onset: unspecified onset Dementia behavioral disturbance: without behavioral disturbance Qualified Code(s): G30.9 - Alzheimer's disease, unspecified; F02.80 - Dementia in other diseases classified elsewhere without behavioral disturbance (3) Syncope Status: Acute Qualifiers: Syncope type: unspecified Qualified Code(s): R55 - Syncope and collapse (4) CKD (chronic kidney disease) Status: Chronic Qualifiers: Chronic kidney disease stage: unspecified stage Qualified Code(s): N18.9 - Chronic kidney disease, unspecified (5) COPD (chronic obstructive pulmonary disease) Status: Chronic Qualifiers: COPD type: unspecified COPD Qualified Code(s): J44.9 - Chronic obstructive pulmonary disease, unspecified (6) HTN (hypertension) Status: Chronic Qualifiers: Hypertension type: essential hypertension Qualified Code(s): I10 - Essential (primary) hypertension (7) HLD (hyperlipidemia) Status: Chronic Qualifiers: Hyperlipidemia type: unspecified Qualified Code(s): E78.5 - Hyperlipidemia , unspecified (8) Anemia Status: Chronic Qualifiers: Anemia type: unspecified type Qualified Code(s): D64.9 - Anemia, unspecified (9) Subdural hygroma Status: Chronic Hospital course: Mr. Jasmine is a 77 year old male - Time Spent with Patient Total time spent providing and/or coordinating discharge services: Date of admission: 01/04/18 18:09 Primary care physician: Edwin Wolf MD Consults: 01/04/18 19:11 Consult to Nutrition [CONS] Routine Comment: Consulting Provider: NUTRITION Reason for Dietary Consult: MST Score Consult to [employer] [CONS] Routine Reason for SW Consult: patient from [place] - Constitutional Vitals: Temp Pulse Resp BP Pulse Ox 98.0 F 52 15 150/70 94 01/07/18 07:04 01/07/18 07:04 01/07/18 07:53 01/07/18 07:04 01/07/18 07:53 - Attending Attestation I have personally seen and examined this patient on 01/07/18 and reviewed her chart and labs, including medications, I have discussed plan of care with the resident physician, whose documentation reflect our plan of care. With the additions/exceptions set forth below.
--- NOTE | 2018-01-07 14:22 | Physician Discharge Referral ---
ExtendedCare Referral Info Transfer To: [facility] in [place], [place] Provider in Charge after Transfer: Other Institutional Level of Care: Skilled - Diagnosis (1) Pneumonia Priority: Primary Status: Acute (2) Dementia Priority: Secondary Status: Chronic (3) Syncope Priority: Secondary Status: Acute (4) CKD (chronic kidney disease) Priority: Secondary Status: Chronic (5) COPD (chronic obstructive pulmonary disease) Priority: Secondary Status: Chronic (6) HTN (hypertension) Priority: Secondary Status: Chronic (7) HLD (hyperlipidemia) Priority: Secondary Status: Chronic (8) Anemia Priority: Secondary Status: Chronic Expected Duration of Placement: Mr. Jasmine is a current long-term resident of [place] Prognosis: Fair Aware of Diagnosis: Patient Aware of Prognosis: Patient - Transfer Medications Prescriptions: Carvedilol [Coreg] 12.5 mg PO BIDWM #60 tablet levoFLOXacin [Levaquin] 750 mg PO Q48H #2 tablet Home Medications: Atorvastatin [Lipitor] 10 mg PO HS 01/04/18 [History] Calcium Carbonate/Vitamin D3 [Calcium 600 + Vit D Tablet] 1 tab PO DAILY [History] Duloxetine HCl [Cymbalta] 60 mg PO DAILY 01/04/18 [History] Ergocalciferol (VITAMIN D2) [Vitamin D2] 50,000 unit PO QWEEK 01/04/18 [History] Fluticasone/Salmeterol [Advair 250-50 Diskus] 1 puff IH BID 01/04/18 [History] Gabapentin [Neurontin] 100 mg PO BID 01/04/18 [History] Galantamine HBr [Razadyne ER] 16 mg PO DAILY 01/04/18 [History] Levothyroxine Sodium [Levoxyl] 150 mcg PO QAM 01/04/18 [History] Lisinopril [Zestril] 20 mg PO BID 01/04/18 [History] Memantine HCl [Memantine HCl ER] 14 mg PO DAILY 01/04/18 [History] Mv,Fe,Min/Lutein [A Thru Z Select Women's Tablet] 1 tab PO DAILY 01/04/18 [ History] Omeprazole [PriLOSEC] 20 mg PO DAILY 01/04/18 [History] Potassium Chloride [Klor-Con 10] 10 meq PO BID 01/04/18 [History] Aspirin Enteric Coated [Aspirin EC] 81 mg PO DAILY tablet. 01/07/18 [Rx] Atorvastatin [Lipitor] 10 mg PO HS tablet 01/07/18 [Rx] Carvedilol [Coreg] 12.5 mg PO BIDWM #60 tablet 01/07/18 [Rx] DULoxetine [Cymbalta] 60 mg PO DAILY capsule. 01/07/18 [Rx] Enoxaparin [Lovenox] 40 mg SQ 0600 syringe 01/07/18 [Rx] Tamsulosin [Flomax] 0.4 mg PO DAILY capsule 01/07/18 [Rx] levoFLOXacin [Levaquin] 750 mg PO Q48H #2 tablet 01/07/18 [Rx] Allergies/Adverse Reactions: 3 Allergy/AdvReac Type Severity Reaction Status Date / Time No Known Allergies Allergy Verified 01/04/18 14:21 - Respiratory Orders None Smoking Cessation: Smoking cessation has been advised. For more information, call the [place] Quit Line at [phone]. - Advance Directives Code Status: Full Code - Mobility Orders Ambulate - Rehabiliation Orders Rehab Potential: Fair - Treatments List/Other: Mr. Jasmine has two more doses of Levaquin to take: please take 1 tab on 01/08 and last tab on 01/10 (48hr later) - Diet Orders Regular CERTIFICATION: I certify that the transfer of the above named patient to an Extended Care Facility is necessary for the continuing treatment of the diagnosis listed. The above information is true and accurate reflection of patient's current condition. Confidential - Redisclosure prohibited without a patient's written consent.
--- NOTE | 2018-01-07 17:24 | Electrocardiograph Report ---
[address] [address] Test Date: 2018-01-04 Pat Name: Shahbaz Jasmine Department: [id number] Room: 2NE22 Gender: M Shade Hanger: : 1940 Requested By: [id number] Order Number: [id number] Reading MD: Pavel Piedra Measurements Intervals [place] Rate: 47 P: 63 DE: 173 QRS: -53 QRSD: 111 T: -56 QT: 453 QTc: 401 Interpretive Statements Sinus bradycardia Left anterior fascicular block Inferior and anterolateral T wave changes possibly due to ischemia Electronically Signed On 01-07-2018 17:22:40 EDT by Pavel Piedra
== END 2018-01-07 18:05 | DRG 178 ==
LOC: SUATTDRO → EMEROOARM 13:58 → 2NENU 13:58 → SUATTDRO 18:09
PROVIDERS: ADMIT Internal Medicine; ATTEND Internal Medicine

== ENCOUNTER 2018-05-29 03:46 | Inpatient (IN) ==
[2018-05-29] MEDS ORDERED: Tdap (Boostrix) Vaccine 0.5 ML SYRINGE IM ONE (04:12)
[2018-05-29] MEDS ORDERED: Lidocaine/EPI 1:100k 1% 30 ML VIAL INFILT ONE (04:12)
[2018-05-29] MEDS ORDERED: 0.9 % Sodium Chloride 500 ML IVC ONE ×3 (04:14→06:30)
--- NOTE | 2018-05-29 04:17 | Emergency Department Note ---
Disposition Clinical Impression: Bradycardia, HCAP (healthcare-associated pneumonia), EUNICE (acute kidney injury) Hypotension Qualifiers: Hypotension type: unspecified hypotension type Qualified Code(s): I95.9 - Hypotension, unspecified Fall Qualifiers: Encounter type: initial encounter Qualified Code(s): W19.XXXA - Unspecified fall, initial encounter Facial laceration Qualifiers: Encounter type: initial encounter Qualified Code(s): S01.81XA - Laceration without foreign body of other part of head, initial encounter Disposition: Admitted As Inpatient Condition: Serious Referrals: NONE,PCP [Primary Care Provider] - Forms: ED Satisfaction Letter Fall HPI - General Chief Complaint: ED Fall Stated Complaint: fall Time Seen by Provider: 05/29/18 04:09 Source: patient, EMS Mode of arrival: EMS Limitations: other Nursing Notes Reviewed: Yes Vital Signs Reviewed: Yes - History of Present Illness HPI Narrative: 77-year-old male history of hypertension, hyperlipidemia, hypothyroidism, aortic valve disease who presents to the ER from his nursing facility via EMS with a complaint of fall and head injury. Injury occurred just prior to arrival. The patient was unwitnessed. Staff heard him fall in the adjacent room. No pro longed downtime. Unsure if there were any symptoms prior to the fall. Patient was noted to have a laceration around his right eyebrow with bleeding controlled prior to arrival. He is amnestic to what happened this evening. No complaints at this time. Pt Subjective Complaint: fall Onset (ago): Just [employer] Fall Witnessed: no Place Fall Occurred: half-way/SNF Loss of Consciousness: unsure Prolonged Down Time?: no Symptoms Prior to Fall: other (unknown) Location of injury: face - Related Data Home Medications Medication Instructions Recorded Confirmed Atorvastatin [Lipitor] 10 mg PO HS 01/04/18 01/04/18 Calcium Carbonate/Vitamin D3 1 tab PO DAILY 01/04/18 01/04/18 [Calcium 600 + Vit D Tablet] Duloxetine HCl [Cymbalta] 60 mg PO DAILY 01/04/18 01/04/18 Ergocalciferol (VITAMIN D2) 50,000 unit PO QWEEK 01/04/18 01/04/18 [Vitamin D2] Fluticasone/Salmeterol [Advair 1 puff IH BID 01/04/18 01/04/18 250-50 Diskus] Gabapentin [Neurontin] 100 mg PO BID 01/04/18 01/04/18 Galantamine HBr [Razadyne ER] 16 mg PO DAILY 01/04/18 01/04/18 Levothyroxine Sodium [Levoxyl] 150 mcg PO QAM 01/04/18 01/04/18 Lisinopril [Zestril] 20 mg PO BID 01/04/18 01/04/18 Memantine HCl [Memantine HCl ER] 14 mg PO DAILY 01/04/18 01/04/18 Mv,Fe,Min/Lutein [A Thru Z Select 1 tab PO DAILY 01/04/18 01/04/18 Women's Tablet] Omeprazole [PriLOSEC] 20 mg PO DAILY 01/04/18 01/04/18 Potassium Chloride [Klor-Con 10] 10 meq PO BID 01/04/18 01/04/18 Previous Rx's Medication Instructions Recorded Aspirin Enteric Coated [Aspirin EC] 81 mg PO DAILY tablet. 01/07/18 Carvedilol [Coreg] 12.5 mg PO BIDWM #60 tablet 01/07/18 Tamsulosin [Flomax] 0.4 mg PO DAILY capsule 01/07/18 Allergies Allergy/AdvReac Type Severity Reaction Status Date / Time No Known Allergies Allergy Verified 01/04/18 14:21 All systems ED: reviewed and negative except as stated. Cardiovascular: Denies: chest pain Respiratory: Denies: dyspnea Gastrointestinal: Denies: abdominal pain Neurological: Reports: headache. Denies: numbness, paresthesias Fall PMH - Past Medical History Medical history: Reports: COPD, coronary artery disease, dementia, GERD, hyperlipidemia, hypertension, renal disease, thyroid disease Psychiatric history: Reports: anxiety, depression - Social History Smoking Status: Never smoker Alcohol use: Reports: none Drug use: Reports: none Physical Exam - General Limitations: altered mental status General appearance: alert, in no apparent distress - Head Head exam: other (approximate 1cm laceration superior to the L medial eyelid) - Eye Eye exam: Present: normal appearance - ENT ENT exam: normal exam - Neck Neck exam: Present: normal inspection, other (C spine immobilized). Absent: tenderness - Chest Chest inspection: Present: normal inspection, symmetric chest wall rise - Respiratory Respiratory exam: Present: normal lung sounds bilaterally - Cardiovascular Cardiovascular exam: Present: normal rhythm, bradycardia, normal heart sounds - Abdominal Exam Abdominal exam: Present: soft, Non-Tender, other (shingles to the RUQ and R flank). Absent: tenderness, distention, guarding, rigidity - Extremities Exam Extremities exam: Present: normal inspection, full ROM - Expanded Upper Extremity Exam Shoulder exam: Present: normal inspection, full ROM Arm exam: Present: normal inspection, full ROM Elbow exam: Present: normal inspection, full ROM Forearm/Wrist exam: Present: normal inspection, full ROM Hand exam: Present: normal inspection, full ROM - Expanded Lower Extremity Exam Hip/Pelvis exam: Present: normal inspection, full ROM Upper leg exam: Present: normal inspection, full ROM Knee exam: Present: normal inspection, full ROM Lower leg exam: Present: normal inspection, full ROM Ankle exam: Present: normal inspection, full ROM Foot/toe exam: Present: normal inspection, full ROM - Neurological Exam Neurological exam: Present: alert - Expanded Neurological Exam Speech: Present: fluid speech Motor strength - LUE: 4/5 Motor strength - RUE: 4/5 Motor strength - LLE: 4/5 Motor strength - RLE: 4/5 Sensory exam upper extremity: light touch: Normal Sensory exam lower extremity: light touch: Normal Coma Scale Eye Opening: Spontaneous Coma Scale Motor Response: Obeys Commands Coma Scale Verbal Response: Confused Coma Scale Total: 14 - Skin Skin exam: Present: warm, dry Course Course Narrative: Patient seen and examined. Vital signs reviewed. Noted to be hypotensive here as well as bradycardic. Plan for CT imaging of the head and cervical spine, EKG, chest x-ray, labs and likely admission for fall with suspicion that it was a syncopal episode secondary to his hypotension. - Reevaluation(s) Reevaluation #1: Patient remains hypotensive despite first fluid bolus. Second fluid bolus ordered. Reevaluation #2: Remains to have marginal blood pressure readings. He was difficult to obtain access initially. Plan to place a central line. Please chest x-ray represents pneumonia. Plan for broad-spectrum antibiotic coverage vancomycin and Zosyn and Levaquin. He is also noted to be in acute renal failure. Vital Signs Temperature 97.8 F 05/29/18 03:50 Pulse Rate 54 05/29/18 03:50 Respiratory Rate 16 05/29/18 03:50 Blood Pressure 85/52 05/29/18 03:50 O2 Sat by Pulse Oximetry 94 05/29/18 03:50 Temperature 97.8 F 05/29/18 03:50 Pulse Rate 57 05/29/18 06:24 Respiratory Rate 20 05/29/18 06:24 Blood Pressure 106/56 05/29/18 06:24 O2 Sat by Pulse Oximetry 98 05/29/18 06:24 Oxygen Delivery Oxygen Delivery Room Air Fall - [facility] Narrative Medical decision making narrative: 77-year-old male presenting due to fall. Found to be hypotensive here on arrival. In his workup is noted to have a left sided pneumonia. He was high this intensive despite gentle fluid resuscitation. He has noted also have acute renal failure with a creatinine of 5. Potassium of 5 without EKG changes. Leukocytosis with left shift with a normal lactate. Blood cultures obtained. Broad-spectrum antibiotics initiated. Patient admitted to the hospitalist service. - Lab Data Lab results reviewed: Yes I reviewed the patient's lab results. Result diagrams: 05/29/18 05:27 05/29/18 05:27 Lab Results 05/29/18 05/29/18 05/29/18 Range/Units 05:27 05:27 05:27 WBC 14.9 H (4.3-11.1) K/mcL RBC 4.35 (4.19-5.50) M/mcL Hgb 11.7 L (12.9-16.9) g/dL Hct 38.1 (37.5-50.1) % MCV 87.6 (83.0-100.0) fL MCH 26.9 L (28.0-33.3) pg MCHC 30.7 L (31.6-35.5) g/dL RDW 16.1 H (11.5-14.5) % Plt Count 243 (140-400) K/mcL MPV 11.3 (9.4-12.4) fL Immature Gran % 0.5 (0-4) % Seg Neutrophils % 85.4 % Lymphocytes % 7.2 % Monocytes % 5.8 % Eosinophils % 0.9 % Basophils % 0.2 % Neutrophils # 12.7 H (1.6-8.9) K/mcL Lymphocytes # 1.1 (0.6-4.6) K/mcL Monocytes # 0.9 (0.0-1.3) K/mcL Eosinophils # 0.1 (0.0-0.6) K/mcL Basophils # 0.0 (0.0-0.2) K/mcL PT 12.7 H (9.4-12.1) Seconds INR 1.1 APTT 26.7 (26.0-36.0) Seconds Sodium 136 (136-145) mEq/L Potassium 5.0 (3.5-5.1) mEq/L Chloride 106 (98-107) mEq/L Carbon Dioxide 20 L (23-29) mEq/L BUN 60 H (8-23) mg/dL Creatinine 4.98 H (0.70-1.30) mg/dL Est GFR ( Amer) 14 L (> 60) Est GFR (Non-Af Amer) 11 L (> 60) BUN/Creatinine Ratio 12 (6-26) Glucose 146 H (70-105) mg/dL Calculated Osmolality 302 H (280-300) Lactic Acid (0.5-2.2) mmol/L Calcium 9.0 (8.6-10.3) mg/dL Troponin I 0.03 (< 0.04) ng/mL Urine Color (Yellow) Urine Clarity (Clear) Urine pH (5.0-8.0) pH Units Ur Specific Martell (1.010-1.025) Urine Protein (Neg-Trace) mg/dL Urine Glucose (UA) (Normal) mg/dL Urine Ketones (Negative) mg/dL Urine Blood (Negative) Urine Nitrite (Negative) Urine Bilirubin (Negative) Urine Urobilinogen (Normal) mg/dL Ur Leukocyte Esterase (Negative) Urine Microscopic RBC (0-3) per hpf Urine Microscopic WBC (0-3) per hpf Ur Squamous Epith Cells (None-Few) per lpf Amorphous Sediment (Few) Urine Bacteria (None-Few) per hpf Hyaline Casts (None-Few) per lpf Urine Mucus (Few) Urine Yeast (None Seen) per hpf 05/29/18 05/29/18 Range/Units 05:27 05:40 WBC (4.3-11.1) K/mcL RBC (4.19-5.50) M/mcL Hgb (12.9-16.9) g/dL Hct (37.5-50.1) % MCV (83.0-100.0) fL MCH (28.0-33.3) pg MCHC (31.6-35.5) g/dL RDW (11.5-14.5) % Plt Count (140-400) K/mcL MPV (9.4-12.4) fL Immature Gran % (0-4) % Seg Neutrophils % % Lymphocytes % % Monocytes % % Eosinophils % % Basophils % % Neutrophils # (1.6-8.9) K/mcL Lymphocytes # (0.6-4.6) K/mcL Monocytes # (0.0-1.3) K/mcL Eosinophils # (0.0-0.6) K/mcL Basophils # (0.0-0.2) K/mcL PT (9.4-12.1) Seconds INR APTT (26.0-36.0) Seconds Sodium (136-145) mEq/L Potassium (3.5-5.1) mEq/L Chloride (98-107) mEq/L Carbon Dioxide (23-29) mEq/L BUN (8-23) mg/dL Creatinine (0.70-1.30) mg/dL Est GFR ( Amer) (> 60) Est GFR (Non-Af Amer) (> 60) BUN/Creatinine Ratio (6-26) Glucose (70-105) mg/dL Calculated Osmolality (280-300) Lactic Acid 0.8 (0.5-2.2) mmol/L Calcium (8.6-10.3) mg/dL Troponin I (< 0.04) ng/mL Urine Color Dark Yellow (Yellow) Urine Clarity Cloudy A (Clear) Urine pH 5.0 (5.0-8.0) pH Units Ur Specific Martell 1.022 (1.010-1.025) Urine Protein Trace (Neg-Trace) mg/dL Urine Glucose (UA) Normal (Normal) mg/dL Urine Ketones Trace H (Negative) mg/dL Urine Blood Negative (Negative) Urine Nitrite Negative (Negative) Urine Bilirubin Small H (Negative) Urine Urobilinogen Normal (Normal) mg/dL Ur Leukocyte Esterase Trace H (Negative) Urine Microscopic RBC 3-5 H (0-3) per hpf Urine Microscopic WBC 3-5 H (0-3) per hpf Ur Squamous Epith Cells Many H (None-Few) per lpf Amorphous Sediment Moderate H (Few) Urine Bacteria Few (None-Few) per hpf Hyaline Casts Many H (None-Few) per lpf Urine Mucus Moderate H (Few) Urine Yeast Few H (None Seen) per hpf - Radiology Data Radiology results reviewed: Yes I reviewed the patient's radiology results. Chest X-Ray 05/29/18 04:09 IMPRESSION: Increasing airspace opacification in the left lower lung zone. This is suspected to represent atelectasis. Asymmetric edema or developing pneumonitis can not be excluded. D/ / Ayaz Rice MD / Ayaz Rice MD Interpreting Provider: Ayaz Rice MD Cervical Spine CT 05/29/18 04:11 IMPRESSION: No acute abnormality of the cervical spine. D/ / Ayaz Rice MD / Ayaz Rice MD Interpreting Provider: Ayaz Rice MD Head CT 05/29/18 04:11 IMPRESSION: 1. No acute intracranial abnormality. 2. Stable atrophy and chronic small vessel ischemic changes. Atrophy is somewhat asymmetric in the right cerebral hemisphere. D/ / Ayaz Rice MD / Ayaz Rice MD Interpreting Provider: Ayaz Rice MD - EKG Data EKG attestation: Yes I reviewed and interpreted this EKG. EKG results narrative: EKG demonstrates sinus bradycardia with IVCD with a rate of 54 beats per minute. LAD. Prolonged QRS duration of 139, other intervals normal. Normal R wave progression. No gross ST elevations or depressions. T waves inversions in leads 3, avF, V3-V5. No significant changes from prior EKG dated 01/04/18 S.B.A.R. - S.B.A.R. Situation: Demographics, MOA Background: Presenting Complaint, Relevant PMH, Meds, & Allergies Assessment: Vital Signs, Course and respsone to treatment, Exam Concerns, Patient/Family Expectation, Pertinant Lab Results Recommendation: Barrier(s) to disposition, Recommendation based on pending studies, treatments, or consults Christine Report Given to: Dr. Oskar King Repor Time: 06:58
[2018-05-29] MEDS ORDERED: Piperacillin/Tazobactam 3.375 GM in 0.9 % Sodium Chloride Mini Bag 100 ML IVPB ONE (05:11)
[2018-05-29] MEDS ORDERED: Levofloxacin 750 MG/150 ML 750 MG/150 ML BAG IVPB ONE (05:11)
--- NOTE | 2018-05-29 05:26 | Emergency Department Note ---
Disposition Clinical Impression: Bradycardia, HCAP (healthcare-associated pneumonia) Hypotension Qualifiers: Hypotension type: unspecified hypotension type Qualified Code(s): I95.9 - Hypotension, unspecified Fall Qualifiers: Encounter type: initial encounter Qualified Code(s): W19.XXXA - Unspecified fall, initial encounter Facial laceration Qualifiers: Encounter type: initial encounter Qualified Code(s): S01.81XA - Laceration without foreign body of other part of head, initial encounter Disposition: Still a Patient Condition: Serious Referrals: NONE,PCP [Primary Care Provider] - Forms: ED Satisfaction Letter Fall HPI - General Chief Complaint: ED Fall Stated Complaint: fall Time Seen by Provider: 05/29/18 04:09 Source: patient, EMS Mode of arrival: EMS - History of Present Illness Place Fall Occurred: usp/SNF - Related Data Home Medications Medication Instructions Recorded Confirmed Atorvastatin [Lipitor] 10 mg PO HS 01/04/18 01/04/18 Calcium Carbonate/Vitamin D3 1 tab PO DAILY 01/04/18 01/04/18 [Calcium 600 + Vit D Tablet] Duloxetine HCl [Cymbalta] 60 mg PO DAILY 01/04/18 01/04/18 Ergocalciferol (VITAMIN D2) 50,000 unit PO QWEEK 01/04/18 01/04/18 [Vitamin D2] Fluticasone/Salmeterol [Advair 1 puff IH BID 01/04/18 01/04/18 250-50 Diskus] Gabapentin [Neurontin] 100 mg PO BID 01/04/18 01/04/18 Galantamine HBr [Razadyne ER] 16 mg PO DAILY 01/04/18 01/04/18 Levothyroxine Sodium [Levoxyl] 150 mcg PO QAM 01/04/18 01/04/18 Lisinopril [Zestril] 20 mg PO BID 01/04/18 01/04/18 Memantine HCl [Memantine HCl ER] 14 mg PO DAILY 01/04/18 01/04/18 Mv,Fe,Min/Lutein [A Thru Z Select 1 tab PO DAILY 01/04/18 01/04/18 Women's Tablet] Omeprazole [PriLOSEC] 20 mg PO DAILY 01/04/18 01/04/18 Potassium Chloride [Klor-Con 10] 10 meq PO BID 01/04/18 01/04/18 Previous Rx's Medication Instructions Recorded Aspirin Enteric Coated [Aspirin EC] 81 mg PO DAILY tablet. 01/07/18 Atorvastatin [Lipitor] 10 mg PO HS tablet 01/07/18 Carvedilol [Coreg] 12.5 mg PO BIDWM #60 tablet 01/07/18 DULoxetine [Cymbalta] 60 mg PO DAILY capsule. 01/07/18 Enoxaparin [Lovenox] 40 mg SQ 0600 syringe 01/07/18 Tamsulosin [Flomax] 0.4 mg PO DAILY capsule 01/07/18 levoFLOXacin [Levaquin] 750 mg PO Q48H #2 tablet 01/07/18 Allergies Allergy/AdvReac Type Severity Reaction Status Date / Time No Known Allergies Allergy Verified 01/04/18 14:21 Cardiovascular: Denies: chest pain Respiratory: Denies: dyspnea Gastrointestinal: Denies: abdominal pain Neurological: Reports: headache. Denies: numbness, paresthesias Fall PMH - Past Medical History Medical history: Reports: COPD, coronary artery disease, dementia, GERD, hyperlipidemia, hypertension, renal disease, thyroid disease Psychiatric history: Reports: anxiety, depression - Social History Smoking Status: Never smoker Alcohol use: Reports: none Drug use: Reports: none Physical Exam - General Limitations: altered mental status General appearance: alert, in no apparent distress Course Vital Signs Temperature 97.8 F 05/29/18 03:50 Pulse Rate 54 05/29/18 03:50 Respiratory Rate 16 05/29/18 03:50 Blood Pressure 85/52 05/29/18 03:50 O2 Sat by Pulse Oximetry 94 05/29/18 03:50 Temperature 97.8 F 05/29/18 03:50 Pulse Rate 54 05/29/18 05:19 Respiratory Rate 16 05/29/18 05:19 Blood Pressure 102/64 05/29/18 05:19 O2 Sat by Pulse Oximetry 98 05/29/18 05:19 Oxygen Delivery Oxygen Delivery Room Air Procedures - Laceration Laceration 1 Site: face Side (If applicable): right Description: linear Depth: simple, single layer Local Anesthetic: lidocaine 1% Amount of Anesthesia Used (mL): 1 Pre-repair: irrigated extensively Skin layer closed with: nylon Size: 5-0 Number of sutures/luis manuel: 2 Technique: simple, interrupted
[2018-05-29 05:44] LABS: Basophils % 0.2 %; Eosinophils # 0.1 K/mcL (0.0-0.6); Eosinophils % 0.9 %; Hematocrit 38.1 % (37.5-50.1); Hemoglobin 11.7 g/dL (12.9-16.9); Immature Granulocytes % 0.5 % (0-4); Lymphocytes # 1.1 K/mcL (0.6-4.6); Lymphocytes % 7.2 %; Mean Corpuscular HGB Conc 30.7 g/dL (31.6-35.5); Mean Corpuscular Hemoglobin 26.9 pg (28.0-33.3); Mean Corpuscular Volume 87.6 fL (83.0-100.0); Mean Platelet Volume 11.3 fL (9.4-12.4); Monocytes # 0.9 K/mcL (0.0-1.3); Monocytes % 5.8 %; Neutrophils # 12.7 K/mcL (1.6-8.9); Platelet Count 243 K/mcL (140-400); Red Blood Count 4.35 M/mcL (4.19-5.50); Red Cell Distribution Width 16.1 % (11.5-14.5); Segmented Neutrophils % 85.4 %
[2018-05-29 05:55] LABS: INR 1.1; Prothrombin Time 12.7 Seconds (9.4-12.1)
[2018-05-29 05:57] LABS: Activated Partial Thrombo Time 26.7 Seconds (26.0-36.0)
[2018-05-29 06:02] LABS: Troponin I 0.03 ng/mL (< 0.04)
[2018-05-29 06:02] LABS: Squamous Epithelial Cell,Urine Many per lpf (None-Few)
[2018-05-29 06:05] LABS: Bilirubin,Urine Small (Negative); Blood,Urine Negative (Negative); Clarity,Urine Cloudy (Clear); Color,Urine Dark Yellow (Yellow); Glucose,Urine (UA) Normal (Normal); Ketones,Urine Trace mg/dL (Negative); Leukocyte Esterase,Urine Trace (Negative); Nitrite,Urine Negative (Negative); Protein,Urine Trace mg/dL (Neg-Trace); Specific Gravity,Urine 1.022 (1.010-1.025); Urobilinogen,Urine Normal (Normal)
[2018-05-29 06:29] LABS: Hyaline Casts,Urine Many per lpf (None-Few); Mucus,Urine Moderate (Few)
[2018-05-29 06:30] LABS: Amorphous Sediment,Urine Moderate (Few); Bacteria,Urine Few per hpf (None-Few); Yeast,Urine Few per hpf (None Seen)
--- NOTE | 2018-05-29 07:10 | Emergency Department Note ---
Disposition Clinical Impression: Bradycardia, HCAP (healthcare-associated pneumonia), EUNICE (acute kidney injury) Hypotension Qualifiers: Hypotension type: unspecified hypotension type Qualified Code(s): I95.9 - Hypotension, unspecified Fall Qualifiers: Encounter type: initial encounter Qualified Code(s): W19.XXXA - Unspecified fall, initial encounter Facial laceration Qualifiers: Encounter type: initial encounter Qualified Code(s): S01.81XA - Laceration without foreign body of other part of head, initial encounter Disposition: Admitted As Inpatient Condition: Serious Referrals: NONE,PCP [Primary Care Provider] - Forms: ED Satisfaction Letter General Adult HPI - General Chief complaint: ED Fall Stated complaint: fall Time Seen by Provider: 05/29/18 04:09 Source: patient, EMS Mode of arrival: EMS Limitations: altered mental status Nursing Notes Reviewed: Yes Vital Signs Reviewed: Yes - History of Present Illness Pain Scale: 5 - Related Data Home Medications Medication Instructions Recorded Confirmed Atorvastatin [Lipitor] 10 mg PO HS 01/04/18 01/04/18 Calcium Carbonate/Vitamin D3 1 tab PO DAILY 01/04/18 01/04/18 [Calcium 600 + Vit D Tablet] Duloxetine HCl [Cymbalta] 60 mg PO DAILY 01/04/18 01/04/18 Ergocalciferol (VITAMIN D2) 50,000 unit PO QWEEK 01/04/18 01/04/18 [Vitamin D2] Fluticasone/Salmeterol [Advair 1 puff IH BID 01/04/18 01/04/18 250-50 Diskus] Gabapentin [Neurontin] 100 mg PO BID 01/04/18 01/04/18 Galantamine HBr [Razadyne ER] 16 mg PO DAILY 01/04/18 01/04/18 Levothyroxine Sodium [Levoxyl] 150 mcg PO QAM 01/04/18 01/04/18 Lisinopril [Zestril] 20 mg PO BID 01/04/18 01/04/18 Memantine HCl [Memantine HCl ER] 14 mg PO DAILY 01/04/18 01/04/18 Mv,Fe,Min/Lutein [A Thru Z Select 1 tab PO DAILY 01/04/18 01/04/18 Women's Tablet] Omeprazole [PriLOSEC] 20 mg PO DAILY 01/04/18 01/04/18 Potassium Chloride [Klor-Con 10] 10 meq PO BID 01/04/18 01/04/18 Previous Rx's Medication Instructions Recorded Aspirin Enteric Coated [Aspirin EC] 81 mg PO DAILY tablet. 01/07/18 Carvedilol [Coreg] 12.5 mg PO BIDWM #60 tablet 01/07/18 Tamsulosin [Flomax] 0.4 mg PO DAILY capsule 01/07/18 Allergies Allergy/AdvReac Type Severity Reaction Status Date / Time No Known Allergies Allergy Verified 01/04/18 14:21 Cardiovascular: Denies: chest pain Respiratory: Denies: dyspnea Gastrointestinal: Denies: abdominal pain Neurological: Reports: headache. Denies: numbness, paresthesias Past Medical History - Past Medical History Medical history: Reports: COPD, coronary artery disease, dementia, GERD, hyperlipidemia, hypertension, renal disease, thyroid disease Psychiatric history: Reports: anxiety, depression - Social History Smoking Status: Never smoker Smokeless Tobacco Status: No Alcohol use: Reports: none Drug use: Reports: none Physical Exam - General Limitations: altered mental status General appearance: alert, in no apparent distress Course Vital Signs Temperature 97.8 F 05/29/18 03:50 Pulse Rate 54 05/29/18 03:50 Respiratory Rate 16 05/29/18 03:50 Blood Pressure 85/52 05/29/18 03:50 O2 Sat by Pulse Oximetry 94 05/29/18 03:50 Temperature 97.8 F 05/29/18 03:50 Pulse Rate 57 05/29/18 07:04 Respiratory Rate 19 05/29/18 07:04 Blood Pressure 107/57 05/29/18 07:04 O2 Sat by Pulse Oximetry 96 05/29/18 07:04 Oxygen Delivery Oxygen Delivery Room Air Medical Decision Making - Medical Records Medical records reviewed: Yes I reviewed the patient's medical records. - Lab Data Lab results reviewed: Yes I reviewed the patient's lab results. Result diagrams: 05/29/18 05:27 05/29/18 05:27 Lab Results 05/29/18 05/29/18 05/29/18 Range/Units 05:27 05:27 05:27 WBC 14.9 H (4.3-11.1) K/mcL RBC 4.35 (4.19-5.50) M/mcL Hgb 11.7 L (12.9-16.9) g/dL Hct 38.1 (37.5-50.1) % MCV 87.6 (83.0-100.0) fL MCH 26.9 L (28.0-33.3) pg MCHC 30.7 L (31.6-35.5) g/dL RDW 16.1 H (11.5-14.5) % Plt Count 243 (140-400) K/mcL MPV 11.3 (9.4-12.4) fL Immature Gran % 0.5 (0-4) % Seg Neutrophils % 85.4 % Lymphocytes % 7.2 % Monocytes % 5.8 % Eosinophils % 0.9 % Basophils % 0.2 % Neutrophils # 12.7 H (1.6-8.9) K/mcL Lymphocytes # 1.1 (0.6-4.6) K/mcL Monocytes # 0.9 (0.0-1.3) K/mcL Eosinophils # 0.1 (0.0-0.6) K/mcL Basophils # 0.0 (0.0-0.2) K/mcL PT 12.7 H (9.4-12.1) Seconds INR 1.1 APTT 26.7 (26.0-36.0) Seconds Sodium 136 (136-145) mEq/L Potassium 5.0 (3.5-5.1) mEq/L Chloride 106 (98-107) mEq/L Carbon Dioxide 20 L (23-29) mEq/L BUN 60 H (8-23) mg/dL Creatinine 4.98 H (0.70-1.30) mg/dL Est GFR ( Amer) 14 L (> 60) Est GFR (Non-Af Amer) 11 L (> 60) BUN/Creatinine Ratio 12 (6-26) Glucose 146 H (70-105) mg/dL Calculated Osmolality 302 H (280-300) Lactic Acid (0.5-2.2) mmol/L Calcium 9.0 (8.6-10.3) mg/dL Troponin I 0.03 (< 0.04) ng/mL Urine Color (Yellow) Urine Clarity (Clear) Urine pH (5.0-8.0) pH Units Ur Specific [place] (1.010-1.025) Urine Protein (Neg-Trace) mg/dL Urine Glucose (UA) (Normal) mg/dL Urine Ketones (Negative) mg/dL Urine Blood (Negative) Urine Nitrite (Negative) Urine Bilirubin (Negative) Urine Urobilinogen (Normal) mg/dL Ur Leukocyte Esterase (Negative) Urine Microscopic RBC (0-3) per hpf Urine Microscopic WBC (0-3) per hpf Ur Squamous Epith Cells (None-Few) per lpf Amorphous Sediment (Few) Urine Bacteria (None-Few) per hpf Hyaline Casts (None-Few) per lpf Urine Mucus (Few) Urine Yeast (None Seen) per hpf 05/29/18 05/29/18 Range/Units 05:27 05:40 WBC (4.3-11.1) K/mcL RBC (4.19-5.50) M/mcL Hgb (12.9-16.9) g/dL Hct (37.5-50.1) % MCV (83.0-100.0) fL MCH (28.0-33.3) pg MCHC (31.6-35.5) g/dL RDW (11.5-14.5) % Plt Count (140-400) K/mcL MPV (9.4-12.4) fL Immature Gran % (0-4) % Seg Neutrophils % % Lymphocytes % % Monocytes % % Eosinophils % % Basophils % % Neutrophils # (1.6-8.9) K/mcL Lymphocytes # (0.6-4.6) K/mcL Monocytes # (0.0-1.3) K/mcL Eosinophils # (0.0-0.6) K/mcL Basophils # (0.0-0.2) K/mcL PT (9.4-12.1) Seconds INR APTT (26.0-36.0) Seconds Sodium (136-145) mEq/L Potassium (3.5-5.1) mEq/L Chloride (98-107) mEq/L Carbon Dioxide (23-29) mEq/L BUN (8-23) mg/dL Creatinine (0.70-1.30) mg/dL Est GFR ( Amer) (> 60) Est GFR (Non-Af Amer) (> 60) BUN/Creatinine Ratio (6-26) Glucose (70-105) mg/dL Calculated Osmolality (280-300) Lactic Acid 0.8 (0.5-2.2) mmol/L Calcium (8.6-10.3) mg/dL Troponin I (< 0.04) ng/mL Urine Color Dark Yellow (Yellow) Urine Clarity Cloudy A (Clear) Urine pH 5.0 (5.0-8.0) pH Units Ur Specific [place] 1.022 (1.010-1.025) Urine Protein Trace (Neg-Trace) mg/dL Urine Glucose (UA) Normal (Normal) mg/dL Urine Ketones Trace H (Negative) mg/dL Urine Blood Negative (Negative) Urine Nitrite Negative (Negative) Urine Bilirubin Small H (Negative) Urine Urobilinogen Normal (Normal) mg/dL Ur Leukocyte Esterase Trace H (Negative) Urine Microscopic RBC 3-5 H (0-3) per hpf Urine Microscopic WBC 3-5 H (0-3) per hpf Ur Squamous Epith Cells Many H (None-Few) per lpf Amorphous Sediment Moderate H (Few) Urine Bacteria Few (None-Few) per hpf Hyaline Casts Many H (None-Few) per lpf Urine Mucus Moderate H (Few) Urine Yeast Few H (None Seen) per hpf - Radiology Data Radiology results reviewed: Yes I reviewed the patient's radiology results. Chest X-Ray 05/29/18 04:09 IMPRESSION: Increasing airspace opacification in the left lower lung zone. This is suspected to represent atelectasis. Asymmetric edema or developing pneumonitis can not be excluded. D/ / Ayaz Rice MD / Ayaz Rice MD Interpreting Provider: Ayaz Rice MD Cervical Spine CT 05/29/18 04:11 IMPRESSION: No acute abnormality of the cervical spine. D/ / Ayaz Rice MD / Ayaz Rice MD Interpreting Provider: Ayaz Rice MD Head CT 05/29/18 04:11 IMPRESSION: 1. No acute intracranial abnormality. 2. Stable atrophy and chronic small vessel ischemic changes. Atrophy is somewhat asymmetric in the right cerebral hemisphere. D/ / Ayaz Rice MD / Ayaz Rice MD Interpreting Provider: Ayaz Rice MD - EKG Data EKG #1 EKG attestation: Yes I reviewed and interpreted this EKG. EKG results narrative: EKG shows sinus bradycardia with a rate of 54. Nonspecific T-wave abnormality. No ST segment elevation or depression. No ectopy. Critical Care Time Critical Care Time: Yes Total Critical Care Time: 40 Attestation: Critical care performed: Time is exclusive of separately billable procedures. Time includes: direct patient care, patient reassessment, coordination of patient care, interpretation of data (laboratory data, radiology data, and respiratory data), review of patient's medical records, medical consultation and documentation of patient care. Procedures included in critical care time: Procedures excluded from critical care time: Right IJ central line placement Attestation Statement - Attestation Attestation: I, Sergio Serna MD, personally evaluated this patient and discussed their management with the resident physician. I reviewed the resident's note and agree with the documented findings, medical decision making, and plan of care. 77-year-old male [facility] from a local [facility] after he had an unwitnessed fall. Staff was in a nearby room and heard the patient fall. They found him on the floor but he was not unresponsive. He had a laceration above the right ey ebrow. He was also found to be hypotensive. He is not normally hypotensive. She has a history of dementia. He does not remember falling. He has no specific complaints here. On examination patient is a well-developed well-nourished elderly [place] no acute distress. He is alert but oriented to person only. No cyanosis or diaphoresis. There is a small irregular laceration to the medial aspect of the right eyebrow. No scalp tenderness or hematomas. Breath sounds are equal bilaterally. Heart good air with a mild bradycardia. Abdomen soft and nontender. No pedal edema. EKG shows sinus bradycardia. No acute ischemic changes. No ectopy noted. Labs reviewed. Acute kidney failure with creatinine of 4.98. Chest x-ray shows left lower lobe pneumonia. Head CT negative. Cervical spine CT negative. Laceration was repaired by Dr. Bassett. I was present for the entire procedur e. Right IJ central line placement performed by Dr. Bassett with assistance from Dr. Le. I was present for the entire procedure. IV antibiotics initiated. The hospitalist, Dr. Schmitt, was consulted and accepted admission of the patient.
--- NOTE | 2018-05-29 07:11 | Emergency Department Note ---
Disposition Clinical Impression: Bradycardia, HCAP (healthcare-associated pneumonia), EUNICE (acute kidney injury) Hypotension Qualifiers: Hypotension type: unspecified hypotension type Qualified Code(s): I95.9 - Hypotension, unspecified Fall Qualifiers: Encounter type: initial encounter Qualified Code(s): W19.XXXA - Unspecified fall, initial encounter Facial laceration Qualifiers: Encounter type: initial encounter Qualified Code(s): S01.81XA - Laceration without foreign body of other part of head, initial encounter Disposition: Admitted As Inpatient Condition: Serious Referrals: NONE,PCP [Primary Care Provider] - Forms: ED Satisfaction Letter Fall HPI - General Chief Complaint: ED Fall Stated Complaint: fall Time Seen by Provider: 05/29/18 04:09 Source: patient, EMS Mode of arrival: EMS - History of Present Illness Place Fall Occurred: [facility] - Related Data Home Medications Medication Instructions Recorded Confirmed Atorvastatin [Lipitor] 10 mg PO HS 01/04/18 01/04/18 Calcium Carbonate/Vitamin D3 1 tab PO DAILY 01/04/18 01/04/18 [Calcium 600 + Vit D Tablet] Duloxetine HCl [Cymbalta] 60 mg PO DAILY 01/04/18 01/04/18 Ergocalciferol (VITAMIN D2) 50,000 unit PO QWEEK 01/04/18 01/04/18 [Vitamin D2] Fluticasone/Salmeterol [Advair 1 puff IH BID 01/04/18 01/04/18 250-50 Diskus] Gabapentin [Neurontin] 100 mg PO BID 01/04/18 01/04/18 Galantamine HBr [Razadyne ER] 16 mg PO DAILY 01/04/18 01/04/18 Levothyroxine Sodium [Levoxyl] 150 mcg PO QAM 01/04/18 01/04/18 Lisinopril [Zestril] 20 mg PO BID 01/04/18 01/04/18 Memantine HCl [Memantine HCl ER] 14 mg PO DAILY 01/04/18 01/04/18 Mv,Fe,Min/Lutein [A Thru Z Select 1 tab PO DAILY 01/04/18 01/04/18 Women's Tablet] Omeprazole [PriLOSEC] 20 mg PO DAILY 01/04/18 01/04/18 Potassium Chloride [Klor-Con 10] 10 meq PO BID 01/04/18 01/04/18 Previous Rx's Medication Instructions Recorded Aspirin Enteric Coated [Aspirin EC] 81 mg PO DAILY tablet. 01/07/18 Carvedilol [Coreg] 12.5 mg PO BIDWM #60 tablet 01/07/18 Tamsulosin [Flomax] 0.4 mg PO DAILY capsule 01/07/18 Allergies Allergy/AdvReac Type Severity Reaction Status Date / Time No Known Allergies Allergy Verified 01/04/18 14:21 Cardiovascular: Denies: chest pain Respiratory: Denies: dyspnea Gastrointestinal: Denies: abdominal pain Neurological: Reports: headache. Denies: numbness, paresthesias Fall PMH - Past Medical History Medical history: Reports: COPD, coronary artery disease, dementia, GERD, hyperlipidemia, hypertension, renal disease, thyroid disease Psychiatric history: Reports: anxiety, depression - Social History Smoking Status: Never smoker Alcohol use: Reports: none Drug use: Reports: none Physical Exam - General Limitations: altered mental status General appearance: alert, in no apparent distress Course Vital Signs Temperature 97.8 F 05/29/18 03:50 Pulse Rate 54 05/29/18 03:50 Respiratory Rate 16 05/29/18 03:50 Blood Pressure 85/52 05/29/18 03:50 O2 Sat by Pulse Oximetry 94 05/29/18 03:50 Temperature 97.8 F 05/29/18 03:50 Pulse Rate 57 05/29/18 07:04 Respiratory Rate 19 05/29/18 07:04 Blood Pressure 107/57 05/29/18 07:04 O2 Sat by Pulse Oximetry 96 05/29/18 07:04 Oxygen Delivery Oxygen Delivery Room Air Procedures - Central Line Placement Right IJ Central Line Inserted*: Yes Central Line Catheter Replacement*: No Central Line Insertion: elective Consent Obtained: verbal consent Procedural Pause: verify patient name and date of , negrita and assess the site, assemble equipment and verify supplies, perform hand hygiene Patient Placed on Monitor/Pulse Ox: Yes During the Procedure: clinician is wearing sterile gloves, cap, mask,& gown during insertion, sterile field and sterile technique are maintained, patient's face is covered with drape or mask and wearing a cap, everyone in room is wearing a mask Central Line Prep: Chlorhexidine scrub Prep the Procedure Site: apply chloraprep to the skin using a back and forth sc rubbing motion, drape the patient with a full body drape Local Anesthetic: lidocaine 2% Amount of anesthesia used (mL): 5 Ultrasound Used for Placement: Yes Central Line Lumen Inserted: triple Post Procedure: sutured in place, good blood return, sterile dressing applied, guide wire removed and visualized Patient Tolerated Procedure: well, no complications Complications: none Name of Clinician Inserting Central Line: John Bassett Clinician Assisting/Completing Checklist: Billy Le Date: 05/29/18 Time: 07:11 Fall - Lab Data Result diagrams: 05/29/18 05:27 05/29/18 05:27 Lab Results 05/29/18 05/29/18 05/29/18 Range/Units 05:27 05:27 05:27 WBC 14.9 H (4.3-11.1) K/mcL RBC 4.35 (4.19-5.50) M/mcL Hgb 11.7 L (12.9-16.9) g/dL Hct 38.1 (37.5-50.1) % MCV 87.6 (83.0-100.0) fL MCH 26.9 L (28.0-33.3) pg MCHC 30.7 L (31.6-35.5) g/dL RDW 16.1 H (11.5-14.5) % Plt Count 243 (140-400) K/mcL MPV 11.3 (9.4-12.4) fL Immature Gran % 0.5 (0-4) % Seg Neutrophils % 85.4 % Lymphocytes % 7.2 % Monocytes % 5.8 % Eosinophils % 0.9 % Basophils % 0.2 % Neutrophils # 12.7 H (1.6-8.9) K/mcL Lymphocytes # 1.1 (0.6-4.6) K/mcL Monocytes # 0.9 (0.0-1.3) K/mcL Eosinophils # 0.1 (0.0-0.6) K/mcL Basophils # 0.0 (0.0-0.2) K/mcL PT 12.7 H (9.4-12.1) Seconds INR 1.1 APTT 26.7 (26.0-36.0) Seconds Sodium 136 (136-145) mEq/L Potassium 5.0 (3.5-5.1) mEq/L Chloride 106 (98-107) mEq/L Carbon Dioxide 20 L (23-29) mEq/L BUN 60 H (8-23) mg/dL Creatinine 4.98 H (0.70-1.30) mg/dL Est GFR ( Amer) 14 L (> 60) Est GFR (Non-Af Amer) 11 L (> 60) BUN/Creatinine Ratio 12 (6-26) Glucose 146 H (70-105) mg/dL Calculated Osmolality 302 H (280-300) Lactic Acid (0.5-2.2) mmol/L Calcium 9.0 (8.6-10.3) mg/dL Troponin I 0.03 (< 0.04) ng/mL Urine Color (Yellow) Urine Clarity (Clear) Urine pH (5.0-8.0) pH Units Ur Specific [place] (1.010-1.025) Urine Protein (Neg-Trace) mg/dL Urine Glucose (UA) (Normal) mg/dL Urine Ketones (Negative) mg/dL Urine Blood (Negative) Urine Nitrite (Negative) Urine Bilirubin (Negative) Urine Urobilinogen (Normal) mg/dL Ur Leukocyte Esterase (Negative) Urine Microscopic RBC (0-3) per hpf Urine Microscopic WBC (0-3) per hpf Ur Squamous Epith Cells (None-Few) per lpf Amorphous Sediment (Few) Urine Bacteria (None-Few) per hpf Hyaline Casts (None-Few) per lpf Urine Mucus (Few) Urine Yeast (None Seen) per hpf 05/29/18 05/29/18 Range/Units 05:27 05:40 WBC (4.3-11.1) K/mcL RBC (4.19-5.50) M/mcL Hgb (12.9-16.9) g/dL Hct (37.5-50.1) % MCV (83.0-100.0) fL MCH (28.0-33.3) pg MCHC (31.6-35.5) g/dL RDW (11.5-14.5) % Plt Count (140-400) K/mcL MPV (9.4-12.4) fL Immature Gran % (0-4) % Seg Neutrophils % % Lymphocytes % % Monocytes % % Eosinophils % % Basophils % % Neutrophils # (1.6-8.9) K/mcL Lymphocytes # (0.6-4.6) K/mcL Monocytes # (0.0-1.3) K/mcL Eosinophils # (0.0-0.6) K/mcL Basophils # (0.0-0.2) K/mcL PT (9.4-12.1) Seconds INR APTT (26.0-36.0) Seconds Sodium (136-145) mEq/L Potassium (3.5-5.1) mEq/L Chloride (98-107) mEq/L Carbon Dioxide (23-29) mEq/L BUN (8-23) mg/dL Creatinine (0.70-1.30) mg/dL Est GFR ( Amer) (> 60) Est GFR (Non-Af Amer) (> 60) BUN/Creatinine Ratio (6-26) Glucose (70-105) mg/dL Calculated Osmolality (280-300) Lactic Acid 0.8 (0.5-2.2) mmol/L Calcium (8.6-10.3) mg/dL Troponin I (< 0.04) ng/mL Urine Color Dark Yellow (Yellow) Urine Clarity Cloudy A (Clear) Urine pH 5.0 (5.0-8.0) pH Units Ur Specific [place] 1.022 (1.010-1.025) Urine Protein Trace (Neg-Trace) mg/dL Urine Glucose (UA) Normal (Normal) mg/dL Urine Ketones Trace H (Negative) mg/dL Urine Blood Negative (Negative) Urine Nitrite Negative (Negative) Urine Bilirubin Small H (Negative) Urine Urobilinogen Normal (Normal) mg/dL Ur Leukocyte Esterase Trace H (Negative) Urine Microscopic RBC 3-5 H (0-3) per hpf Urine Microscopic WBC 3-5 H (0-3) per hpf Ur Squamous Epith Cells Many H (None-Few) per lpf Amorphous Sediment Moderate H (Few) Urine Bacteria Few (None-Few) per hpf Hyaline Casts Many H (None-Few) per lpf Urine Mucus Moderate H (Few) Urine Yeast Few H (None Seen) per hpf
[2018-05-29] MEDS ORDERED: Aminoglycoside Consult 1 EACH MC ONE (07:14)
--- NOTE | 2018-05-29 09:08 | Internal Med History&Physical ---
Date of Encounter: 05/29/18 Time of Encounter: 07:00 Internal Medicine - H&P: HPI Chief complaint: Fall Admitted From: Long-term Nursing Facility Plans for Post Hospital Care: Transfer Group Home Facility History of present illness: Patient is a 77-year-old male with past medical history significant for vasile ntia, COPD, coronary artery disease, GERD, hypertension, chronic kidney disease and hypothyroidism who presents to the ER from [facility] on 05/29/18 due to unwitnessed fall. Patient has dementia so not able to give history and no one at the bedside. Per chart review, staff at [facility] heard patient fall in the next room and found patient on the floor. He apparently never lost consciousness. Patient had ab rasion on his forehead and was brought into the ER for further evaluation. Patient was admitted on 01/04/18 and treated for syncope and pneumonia; echocardiogram and Dopplers in addition to head CT/MRI at that time without any acute findings and patient was treated for pneumonia. In the ER, patient was found to be hypotensive and bradycardic in addition to leukocytosis with acute on chronic renal failure. Patient was given a liter of fluid and was started on IV Levaquin in addition to vancomycin. Patients hypotension resolved and heart rate improved. Patients forehead was sutured in the ER and will be admitted to the progressive unit for further management and evaluation. Past Med Surg Social Fam HX - Past Medical History Medical history: COPD, coronary artery disease, dementia, GERD, hyperlipidemia, hypertension, renal disease, thyroid disease Additional medical history: anemia. BPH. aortic valve disease Psychiatric history: anxiety, depression - Past Surgical History Additional surgical history: aortic valve replacement - Social History Smoking Status: Never smoker Smokeless Tobacco Status: No Alcohol use: none Drug use: none Internal Medicine - H&P: Meds Atorvastatin [Lipitor] 10 mg PO HS 01/04/18 [History] Calcium Carbonate/Vitamin D3 [Calcium 600 + Vit D Tablet] 1 tab PO DAILY 01/04/18 [History] Duloxetine HCl [Cymbalta] 60 mg PO DAILY 01/04/18 [History] Ergocalciferol (VITAMIN D2) [Vitamin D2] 50,000 unit PO QWEEK 01/04/18 [History] Fluticasone/Salmeterol [Advair 250-50 Diskus] 1 puff IH BID 01/04/18 [History] Gabapentin [Neurontin] 100 mg PO BID 01/04/18 [History] Galantamine HBr [Razadyne ER] 16 mg PO DAILY 01/04/18 [History] Lisinopril [Zestril] 20 mg PO BID 01/04/18 [History] Memantine HCl [Memantine HCl ER] 14 mg PO DAILY 01/04/18 [History] Mv,Fe,Min/Lutein [A Thru Z [employer] Tablet] 1 tab PO DAILY 01/04/18 [History] Omeprazole [PriLOSEC] 20 mg PO DAILY 01/04/18 [History] Potassium Chloride [Klor-Con 10] 10 meq PO BID 01/04/18 [History] Aspirin Enteric Coated [Aspirin EC] 81 mg PO DAILY tablet. 01/07/18 [Rx] Carvedilol [Coreg] 12.5 mg PO BIDWM #60 tablet 01/07/18 [Rx] Tamsulosin [Flomax] 0.4 mg PO DAILY capsule 01/07/18 [Rx] Levothyroxine [Synthroid] 125 mcg PO DAILY 05/29/18 [History] Tramadol HCl [Ultram] 50 mg PO QID PRN 05/29/18 [History] Allergy/AdvReac Type Severity Reaction Status Date / Time No Known Allergies Allergy Verified 01/04/18 14:21 ROS unobtainable: due to mental status All Systems PM: A 10-system review of systems was performed and is negative for pertinent findings except as documented above in the HPI. - Constitutional Vitals: Temp Pulse Resp BP Pulse Ox 97.8 F 57 19 107/57 96 05/29/18 03:50 05/29/18 07:04 05/29/18 07:04 05/29/18 07:04 05/29/18 07:04 General appearance: Present: A&O X 1, no acute distress Exam: As above - Head Head exam: Present: normocephalic Additional comments: Patient with sutured laceration on forehead - Eye Eye exam: Present: normal appearance - ENT ENT exam: Present: mucous membranes dry - Respiratory Respiratory exam: Present: CTAB. Absent: accessory muscle use, rales, rhonchi, wheezes - Cardiovascular Cardiovascular exam: Present: RRR, +S1, +S2. Absent: diastolic murmur, gallop, rubs, systolic murmur - GI/Abdominal GI/Abdominal exam: Present: normal bowel sounds, soft, no peritoneal signs. Absent: distended, tenderness - Extremities Exam Extremities exam: Absent: pedal edema - Neurological Exam Neurological exam: Present: alert. Absent: oriented X3 - Psychiatric Psychiatric exam: Present: normal mood - Skin Skin exam: Present: intact (Patient with sutured laceration on forehead) Internal Med - H&P Results - Labs CBC & Chem 7: 05/29/18 05:27 05/29/18 05:27 Labs: Short CBC 05/29/18 Range/Units 05:27 WBC 14.9 H (4.3-11.1) K/mcL Hgb 11.7 L (12.9-16.9) g/dL Hct 38.1 (37.5-50.1) % Plt Count 243 (140-400) K/mcL Neutrophils # 12.7 H (1.6-8.9) K/mcL BMP 05/29/18 05:27 Sodium 136 Potassium 5.0 Chloride 106 Carbon Dioxide 20 L BUN 60 H Creatinine 4.98 H Glucose 146 H Calcium 9.0 Cardiac Enzymes 05/29/18 Range/Units 05:27 Troponin I 0.03 (< 0.04) ng/mL Urine 05/29/18 Range/Units 05:40 Urine Color Dark Yellow (Yellow) Urine Clarity Cloudy A (Clear) Urine pH 5.0 (5.0-8.0) pH Units Ur Specific Hay 1.022 (1.010-1.025) Urine Protein Trace (Neg-Trace) mg/dL Urine Glucose (UA) Normal (Normal) mg/dL - Impressions ITS Impressions Chest X-Ray 05/29/18 04:09 IMPRESSION: Increasing airspace opacification in the left lower lung zone. This is suspected to represent atelectasis. Asymmetric edema or developing pneumonitis can not be excluded. D/ / Ayaz Rice MD / Ayaz Rice MD Interpreting Provider: Ayaz Rice MD Cervical Spine CT 05/29/18 04:11 IMPRESSION: No acute abnormality of the cervical spine. D/ / Ayaz Rice MD / Ayaz Rice MD Interpreting Provider: Ayaz Rice MD Head CT 05/29/18 04:11 IMPRESSION: 1. No acute intracranial abnormality. 2. Stable atrophy and chronic small vessel ischemic changes. Atrophy is somewhat asymmetric in the right cerebral hemisphere. D/ / Ayaz Rice MD / Ayaz Rice MD Interpreting Provider: Ayaz Rice MD Chest X-Ray 05/29/18 06:59 IMPRESSION: 1. Right CVC with tip in the region of the distal superior vena cava. No pneumothorax. 2. Stable left lung consolidation. D/ / 05/29/2018 08:02:31 Mervin Noe MD / Cheryl Cifuentes Interpreting Provider: Mervin Noe MD - Assessment and plan (1) Sepsis Current Visit: Yes Status: Acute Assessment and plan: Patient with leukocytosis and found to be hypotensive on admission; chest x-ray shows pneumonia Will treat patient for HCAP with IV antibiotics as below in addition to fluid resuscitation Qualifiers: Sepsis type: sepsis due to unspecified organism Qualified Code(s): A41.9 - Sepsis, unspecified organism (2) HCAP (healthcare-associated pneumonia) Current Visit: Yes Status: Acute Assessment and plan: Chest x-ray shows left lung consolidation Continue IV vancomycin and IV Levaquin started in the ER Will also order respiratory panel (3) Hypotension Current Visit: Yes Status: Acute Assessment and plan: Patient found to be hypotensive in the ER and has been given a liter of fluid which improved blood pressures. Will continue fluid resuscitation and hold all antihypertensive medications Qualifiers: Hypotension type: unspecified hypotension type Qualified Code(s): I95.9 - Hypotension, unspecified (4) Bradycardia Current Visit: Yes Status: Acute Assessment and plan: Patient also found to have bradycardia on admission Patient with a heart rate of 58 on my examination at bedside Echocardiogram on 12/2017 showed LVEF of 60% with normal right ventricular structure and function Will order limited echocardiogram and monitor on telemetry (5) Fall Current Visit: Yes Status: Acute Assessment and plan: Suspect secondary to the above Patient was admitted on 01/04/18 and treated for syncope and pneumonia; echocardiogram and Dopplers in addition to head CT/MRI at that time without any acute findings and patient was treated for pneumonia. CT of the head negative for acute findings and forehead laceration sutured in the ER Will monitor patient on telemetry as above Qualifiers: Encounter type: initial encounter Qualified Code(s): W19.XXXA - Unspecified fall, initial encounter (6) Bkfvh-vx-ciirjdd renal failure Current Visit: Yes Status: Acute Assessment and plan: Patient also found to have elevated creatinine of 4.98 Creatinine on admission in 12/2017 was approximately 1.4 Suspect prerenal secondary to hypotension above Will continue IV fluids Nephrology consulted and appreciate recommendations Qualifiers: Chronic kidney disease stage: unspecified stage Qualified Code(s): N17.9 - Acute kidney failure, unspecified; N18.9 - Chronic kidney disease, unspecified (7) Anemia Current Visit: No Status: Chronic Assessment and plan: Patient with chronic anemia which is stable Continue to monitor Qualifiers: Anemia type: unspecified type Qualified Code(s): D64.9 - Anemia, unspecified (8) COPD (chronic obstructive pulmonary disease) Current Visit: No Status: Chronic Assessment and plan: Continue patient's home medication of Advair Qualifiers: COPD type: unspecified COPD Qualified Code(s): J44.9 - Chronic obstructive pulmonary disease, unspecified (9) HTN (hypertension) Current Visit: No Status: Chronic Assessment and plan: Will hold all antihypertensive medications due to hypertension above Qualifiers: Hypertension type: essential hypertension Qualified Code(s): I10 - Essen tial (primary) hypertension (10) GERD (gastroesophageal reflux disease) Current Visit: Yes Status: Acute Assessment and plan: Continue home dose of PPI Qualifiers: Esophagitis presence: esophagitis presence not specified Qualified Code(s): K21.9 - Gastro-esophageal reflux disease without esophagitis (11) Dementia Current Visit: No Status: Chronic Assessment and plan: Continue patient's home medications Qualifiers: Dementia type: Alzheimer's disease Alzheimer's disease onset: unspecified onset Dementia behavioral disturbance: without behavioral disturbance Qualified Code(s): G30.9 - Alzheimer's disease, unspecified; F02.80 - Dementia in other diseases classified elsewhere without behavioral disturbance (12) DVT prophylaxis Current Visit: Yes Status: Acute Assessment and plan: Subcutaneous heparin - Time Spent With Patient Total time spent is greater than 50% in coordination of care (as documented) at patient's floor/unit and/or counseling patient:
[2018-05-29] MEDS ORDERED: traMADol 50 MG TABLET PO PRN (09:28)
[2018-05-29] MEDS ORDERED: Naloxone 0.4 MG/ML INJ IVP PRN (09:33)
[2018-05-29] MEDS ORDERED: Vancomycin 1 EACH in 0.9 % Sodium Chloride 250 ML IVPB PRN (10:00)
[2018-05-29] MEDS: 0.9 % Sodium Chloride 1,000 ML IVC SCH (12:09)
[2018-05-29] MEDS: Piperacillin/Tazobactam 3.375 GM in 0.9 % Sodium Chloride Mini Bag 100 ML IVPB SCH (13:20)
--- NOTE | 2018-05-29 13:40 | Nephrology Consult Note ---
Addendum entered and electronically signed by Shay Jameson Gleason, DO 05/29/18 16:37: His chemistry from this afternoon has returned and is trending better, which is a reassuring first step. He remains a high risk patient and has required a level of MDM and E/M. Addendum entered and electronically signed by Shay Jameson Gleason, DO 05/29/18 16:34: I have personally performed a face to face evaluation on this patient. I have reviewed and agree with the care plan. History and Exam by me shows: 77 y/o WM with a pmh of dementia who fell and while being worked up in the ER, he was noted have an elevated SCr. He was by himself and was not able to provide a thorough history. Regarding Family History, I asked him twice and he denied having any relatives with ESRD or CKD. Recommend IVF for presumed Prerenal EUNICE. Start the EUNICE work up including checking a retroperitoneal U/S. Pending follow up afternoon chemistry. If he trends worse and does not respond to IVF, then he may need [employer] PILOT. Thank you for consulting the [facility] group. I will continue to closely follow with you. Original Note: Date of Encounter: 05/29/18 Time of Encounter: 13:22 Assessment and Plan (1) EUNICE (acute kidney injury) Current Visit: Yes Status: Acute Previous GFR's 48 and 50. GFR is 11 today. Would caution use of IV Vancomycin. Avoid other nephrotoxins and renal dose. Strict I/O (2) HCAP (healthcare-associated pneumonia) Current Visit: Yes Status: Acute Per primary. (3) Facial laceration Current Visit: Yes Status: Acute Sutured in ED. Fall precautions in the hospital. Qualifiers: Encounter type: initial encounter Qualified Code(s): S01.81XA - Laceration without foreign body of other part of head, initial encounter (4) Fall Current Visit: Yes Status: Acute Fall precautions while inpatient. Qualifiers: Encounter type: initial encounter Qualified Code(s): W19.XXXA - Unspecified fall, initial encounter (5) Hypotension Current Visit: Yes Status: Acute Appears resolving, did have approximately 3 liters in ED. Continue IVF. 115/68. Qualifiers: Hypotension type: unspecified hypotension type Qualified Code(s): I95.9 - Hypotension, unspecified History of Present Illness - Reason for Consult Consult date: 05/29/18 Acute Kidney Injury Requesting physician: Alfred Triplett - Chief Complaint EUNICE/ s/p fall - History of Present Illness is a 77 year old male who resides in an ECF. He fell early this morning. Unsure of precipitating events or symptoms, he was unwitnessed. PMH: anemia, CAD, COPD, dementia, CKD (unknown baseline). Only 3 previous GFR's in the EMR. Patient did have a laceration above the right eyebrow, which was sut ured in the ED. Previous GFR's were 48 and 50. Per ECW, he has never seen a piercer operator, but unsure if he has seen one from another practice. Patient is a poor historian, most of the information was obtained from the chart. EUNICE workup has been ordered. Retroperitoneal US, urine and serum labs ordered. Will order IV fluid. Avoid nephrotoxins and renal dose all medications. Past Med Surg Social Fam HX - Past Medical History Medical history: COPD, coronary artery disease, dementia, GERD, hyperlipidemia, hypertension, renal disease, thyroid disease Additional medical history: anemia. BPH. aortic valve disease Psychiatric history: anxiety, depression - Past Surgical History Additional surgical history: aortic valve replacement - Social History Smoking Status: Never smoker Smokeless Tobacco Status: No Alcohol use: none Drug use: none Medications and Allergies Atorvastatin [Lipitor] 10 mg PO HS 01/04/18 [History] Calcium Carbonate/Vitamin D3 [Calcium 600 + Vit D Tablet] 1 tab PO DAILY 01/04/18 [History] Duloxetine HCl [Cymbalta] 60 mg PO DAILY 01/04/18 [History] Ergocalciferol (VITAMIN D2) [Vitamin D2] 50,000 unit PO QWEEK 01/04/18 [History] Fluticasone/Salmeterol [Advair 250-50 Diskus] 1 puff IH BID 01/04/18 [History] Gabapentin [Neurontin] 100 mg PO BID 01/04/18 [History] Galantamine HBr [Razadyne ER] 16 mg PO DAILY 01/04/18 [History] Lisinopril [Zestril] 20 mg PO BID 01/04/18 [History] Memantine HCl [Memantine HCl ER] 14 mg PO DAILY 01/04/18 [History] Mv,Fe,Min/Lutein [A Thru Z [employer]'s Tablet] 1 tab PO DAILY 01/04/18 [History] Omeprazole [PriLOSEC] 20 mg PO DAILY 01/04/18 [History] Potassium Chloride [Klor-Con 10] 10 meq PO BID 01/04/18 [History] Aspirin Enteric Coated [Aspirin EC] 81 mg PO DAILY tablet. 01/07/18 [Rx] Carvedilol [Coreg] 12.5 mg PO BIDWM #60 tablet 01/07/18 [Rx] Tamsulosin [Flomax] 0.4 mg PO DAILY capsule 01/07/18 [Rx] Levothyroxine [Synthroid] 125 mcg PO DAILY 05/29/18 [History] Tramadol HCl [Ultram] 50 mg PO QID PRN 05/29/18 [History] Allergy/AdvReac Type Severity Reaction Status Date / Time No Known Allergies Allergy Verified 01/04/18 14:21 Review of Systems ROS unobtainable: due to mental status Exam - Vital Signs Vital signs: Initial Vital Signs Temp Pulse Resp BP Pulse Ox 97.8 F 54 16 85/52 94 05/29/18 03:50 05/29/18 03:50 05/29/18 03:50 05/29/18 03:50 05/29/18 03:50 Vital Signs - Last 8 Hours Pulse Resp BP Pulse Ox 05/29/18 12:15 22 115/68 05/29/18 11:44 66 20 107/59 94 05/29/18 07:04 57 19 107/57 96 05/29/18 06:24 57 20 106/56 98 Intake and Output 05/28/18 05/29/18 05/29/18 23:59 07:59 15:59 Intake Total 1250 / 1250 650 / 650 Balance 1250 / 1250 650 / 650 Intake: IV Fluids 1250 / 1250 650 / 650 0.9 % Sodium Chloride 500 ML @ 1000 / 1000 500 / 500 999 mls/hr IVC .Q31M ONE Rx#: [id number] Levaquin Premix 750mg/150 mL 150 / 150 750 mg In 150 ml @ 100 mls/hr IVPB ONCE ONE Rx#:[id number] Vancocin 1,250 MG In 0.9 % 250 / 250 Sodium Chloride 250 ML @ 167 mls/hr IVPB ONCE ONE Rx#: [id number] Other: Weight 75.977 kg Patient Weight 05/29/18 23:59 Weight 75.977 kg - General Appearance General appearance: well-developed, well-nourished EENT: ATNC, hearing intact, vision intact Neck: supple Respiratory: clear Cardiology: no edema, normal S1, normal S2 Gastrointestinal: normoactive bowel sounds, no tenderness, no guarding Integumentary: no rash, warm and dry Additional Comments: Alert to self and the fact he is not in the ECF, unsure of date. Musculoskeletal: no deformities, no erythema Psychiatric: mood/affect appropriate, cooperative Results - Lab Results 05/29/18 05:27 05/29/18 05:27 Most recent lab results Calcium 9.0 mg/dL (8.6-10.3) 05/29/18 05:27 Consult Discharge Plan - Plan Referrals: NONE,PCP [Primary Care Provider] -
[2018-05-29 16:34] LABS: Calcium 8.4 mg/dL (8.6-10.3); Potassium 4.7 mEq/L (3.5-5.1); Uric Acid 8.8 mg/dL (2.3-7.6)
[2018-05-29 17:00] LABS: Adenovirus Not Detected (Not Detect); Bordetella Pertussis Not Detected (Not Detect); Chlamydophila pneumoniae Not Detected (Not Detect); Coronavirus 229E Not Detected (Not Detect); Coronavirus HKU1 Not Detected (Not Detect); Coronavirus NL63 Not Detected (Not Detect); Coronavirus OC43 Not Detected (Not Detect); Human Metapneumovirus Not Detected (Not Detect); Human Rhinovirus/Enterovirus Not Detected (Not Detect); Influenza A Subtype 2009 H1 Not Detected (Not Detect); Influenza A Untypeable Not Detected (Not Detect); Influenza B Not Detected (Not Detect); Mycoplasma pneumoniae Not Detected (Not Detect); Parainfluenza Virus 1 Not Detected (Not Detect); Parainfluenza Virus 2 Not Detected (Not Detect); Parainfluenza Virus 3 Not Detected (Not Detect); Parainfluenza Virus 4 Not Detected (Not Detect); Respiratory Syncytial Virus Not Detected (Not Detect)
[2018-05-29] MEDS: *HR* Heparin 5,000 UNIT/ML VIAL SQ SCH (18:15)
[2018-05-29] MEDS: Budesonide/Formoterol 80/4.5 MDI IH SCH (20:13)
[2018-05-29] MEDS: Gabapentin 100 MG CAPSULE PO SCH (22:04)
[2018-05-30] MEDS: Piperacillin/Tazobactam 3.375 GM in 0.9 % Sodium Chloride Mini Bag 100 ML IVPB SCH ×3 (00:34→23:30)
[2018-05-30] MEDS: 0.9 % Sodium Chloride 1,000 ML IVC SCH (02:50)
[2018-05-30] MEDS: *HR* Heparin 5,000 UNIT/ML VIAL SQ SCH ×2 (04:57→17:32)
[2018-05-30 05:39] LABS: Basophils % 0.4 %; Eosinophils # 0.1 K/mcL (0.0-0.6); Eosinophils % 1.2 %; Hematocrit 33.2 % (37.5-50.1); Hemoglobin 10.7 g/dL (12.9-16.9); Immature Granulocytes % 0.3 % (0-4); Lymphocytes # 1.1 K/mcL (0.6-4.6); Lymphocytes % 11.1 %; Mean Corpuscular HGB Conc 32.2 g/dL (31.6-35.5); Mean Corpuscular Hemoglobin 27.6 pg (28.0-33.3); Mean Corpuscular Volume 85.6 fL (83.0-100.0); Mean Platelet Volume 11.6 fL (9.4-12.4); Monocytes # 0.8 K/mcL (0.0-1.3); Monocytes % 7.6 %; Neutrophils # 7.9 K/mcL (1.6-8.9); Platelet Count 214 K/mcL (140-400); Red Blood Count 3.88 M/mcL (4.19-5.50); Red Cell Distribution Width 15.7 % (11.5-14.5); Segmented Neutrophils % 79.4 %
[2018-05-30 05:45] LABS: Calcium 8.4 mg/dL (8.6-10.3); Potassium 4.5 mEq/L (3.5-5.1)
[2018-05-30] MEDS: Gabapentin 100 MG CAPSULE PO SCH ×2 (07:36→20:34)
[2018-05-30] MEDS: Cholecalciferol (D-3) 1,000 UNIT TABLET PO SCH (07:37)
--- NOTE | 2018-05-30 09:00 | Internal Med Progress Note ---
Hospitalist Progress Note - Encounter Date of Encounter: 05/30/18 Time of Encounter: 08:42 - Subjective Interval History: Patient seen and examined this morning. AO x2. Denies new complains. Breathing better. c/o Rt chest pain. No fever chills, N/V/D. - Exam Vitals: Temp Pulse Resp BP Pulse Ox 98.7 F 63 18 147/80 95 05/30/18 07:31 05/30/18 07:31 05/30/18 07:31 05/30/18 07:31 05/30/18 07:31 Exam: General: In no acute distress. Conversant. Rt forehead laceration with sutures in place. Respiratory exam: CTAB. no accessory muscle use, rales, rhonchi, wheezes Cardiovascular exam: RRR, +S1, +S2. no murmur, gallop, rubs. Rt TLC in jugular vein. GI/Abdominal exam: Non-tender, Non-distended, normal bowel sounds, soft, no peritoneal signs. Extremities exam: full ROM, no pedal edema, warm, pulses palpable in b/l lower extremities. no calf tenderness Neurological exam: CN II-XII intact, AO X2, no focal deficits. no pronater drift, facial droop, speech deficit Skin exam: Healing scabbed lesion on Rt chest. Mild cellulitic changes on Rt back with excoriated skin. - Assessment and Plan (1) Dementia Current Visit: No Status: Chronic (2) COPD (chronic obstructive pulmonary disease) Current Visit: No Status: Chronic (3) HTN (hypertension) Current Visit: No Status: Chronic (4) Anemia Current Visit: No Status: Chronic (5) Bradycardia Current Visit: Yes Status: Acute (6) Hypotension Current Visit: Yes Status: Acute (7) HCAP (healthcare-associated pneumonia) Current Visit: Yes Status: Acute (8) Fall Current Visit: Yes Status: Acute (9) Gbqen-wh-misnsoz renal failure Current Visit: Yes Status: Acute (10) Sepsis Current Visit: Yes Status: Acute (11) DVT prophylaxis Current Visit: Yes Status: Acute (12) GERD (gastroesophageal reflux disease) Current Visit: Yes Status: Acute - Summary of Assessment and Plan Summary of Assessment and Plan: Sepsis - with leukocytosis and hypotensive on admission - CXR with signs of pneumonia with left lung consolidation. Rt back with skin excoriation with some signs of cellulitis. Others with scabbed lesion with recently finished course of valacyclovir for shingles. - c/w empiric IV antibiotics for pneumonia with zosyn. Will discontinue vancomycin and levaquin given negative MRSA and urine legionella and strep antigen in setting of EUNICE. No strong suspicion on MRSA pneumonia. Blood cultures 05/29 NGTD. - BP improved with IVF. - Respiratory panel negative Hypotension - s/p IVF - c/w maintainence fluid and hold all antihypertensive medications. - Will remove TLC if BP remains table todya. Bradycardia - Echocardiogram on 12/2017 showed LVEF of 60% with normal right ventricular structure and function - No HR improved - f/u limited echocardiogram - c/w telemetry Fall - Patient was admitted on 01/04/18 and treated for syncope and pneumonia; echocardiogram and Dopplers in addition to head CT/MRI at that time without any acute findings and patient was treated for pneumonia. - CT of the head negative for acute findings and forehead laceration sutured in the ER - c/w telemetry Fimbo-hs-mcbscco renal failure - Possibly prerenal - improving with IVF. continue maintainece IV fluids - US unremarkable except enlarged prostate. - Nephrology consulted and appreciate recommendations Anemia - chronic - slighly downtrending. No signs of bleeding - Continue to monitor COPD - c/w home medication HTN - hold all antihypertensive medications due to hypertension above GERD - Continue home dose of PPI Dementia - Continue patient's home medications DVT prophylaxis - Subcutaneous heparin - Time Spent with Patient Total time spent is greater than 50% in coordination of care (as documented) at patient's floor/unit and/or counseling patient: Internal Medicine: Result - Labs CBC & Chem 7: 05/30/18 05:05 05/30/18 05:05 Labs: Short CBC 05/30/18 Range/Units 05:05 WBC 9.9 (4.3-11.1) K/mcL Hgb 10.7 L (12.9-16.9) g/dL Hct 33.2 L (37.5-50.1) % Plt Count 214 (140-400) K/mcL Neutrophils # 7.9 (1.6-8.9) K/mcL BMP 05/29/18 05/30/18 15:45 05:05 Sodium 138 134 L Potassium 4.7 4.5 Chloride 111 H 114 H Carbon Dioxide 19 L 19 L BUN 52 H 40 H Creatinine 3.42 H 2.48 H Glucose 91 84 Calcium 8.4 L 8.4 L - ABG Interpretation ABG results: PT/INR, D-dimer PT 12.7 Seconds (9.4-12.1) H 05/29/18 05:27 - Impressions Impressions Echocardiogram Limited Views 05/29/18 09:39 Impressions: Limited Echo. LVEF 70-75%, hyperdynamic LV. Normal right ventricular structure and function. Mildly dilated left atrium. Left Ventricular Wall Motion: Rest Echo Findings The apex, apical inferior, mid inferior, basal inferior, apical anterior, mid anterior, basal anterior, apical septal, mid inferior septal, basal inferior septal, apical lateral, mid anterior lateral, basal anterior lateral, mid anterior septal, mid inferior lateral, basal anterior septal and basal inferior lateral hebert were hyperkinetic. Findings: Study Quality * Technically sub-optimal due to clinical status. ECG Findings * Sinus bradycardia. Left Ventricle * LVEF 70-75%, hyperdynamic LV. * Normal LV chamber size and systolic function. Right Ventricle * Normal right ventricular structure and function. Left Atrium * Mildly dilated left atrium. Right Atrium * Normal right atrial size. Aortic Valve * Bioprosthetic aortic valve replacement not evaluated. Retroperitoneum Ultrasound 05/29/18 16:30 IMPRESSION: Unremarkable sonographic appearance of the kidneys. Enlarged prostate gland. D/ / Matilda Byrne Cha, MD / Matilda Byrne Cha, MD Interpreting Provider: Matilda Byrne Cha, MD Consult Discharge Plan - Plan Referrals: NONE,PCP [Primary Care Provider] - (1) Dementia Qualifiers: Dementia type: Alzheimer's disease Alzheimer's disease onset: unspecified onset Dementia behavioral disturbance: without behavioral disturbance Qualified Code(s): G30.9 - Alzheimer's disease, unspecified; F02.80 - Dementia in other diseases classified elsewhere without behavioral disturbance (2) COPD (chronic obstructive pulmonary disease) Qualifiers: COPD type: unspecified COPD Qualified Code(s): J44.9 - Chronic obstructive pulmonary disease, unspecified (3) HTN (hypertension) Qualifiers: Hypertension type: essential hypertension Qualified Code(s): I10 - Essential (primary) hypertension (4) Anemia Qualifiers: Anemia type: unspecified type Qualified Code(s): D64.9 - Anemia, unspecified (6) Hypotension Qualifiers: Hypotension type: unspecified hypotension type Qualified Code(s): I95.9 - Hypotension, unspecified (8) Fall Qualifiers: Encounter type: initial encounter Qualified Code(s): W19.XXXA - Unspecified f all, initial encounter (9) Dgfqf-tn-xyfvmdp renal failure Qualifiers: Chronic kidney disease stage: unspecified stage Qualified Code(s): N17.9 - Acute kidney failure, unspecified; N18.9 - Chronic kidney disease, unspecified (10) Sepsis Qualifiers: Sepsis type: sepsis due to unspecified organism Qualified Code(s): A41.9 - Sepsis, unspecified organism (12) GERD (gastroesophageal reflux disease) Qualifiers: Esophagitis presence: esophagitis presence not specified Qualified Code(s): K21.9 - Gastro-esophageal reflux disease without esophagitis
[2018-05-30] MEDS: D5% in 0.45% NACL 1,000 ML IVC SCH ×2 (09:14→19:46)
--- NOTE | 2018-05-30 09:39 | Nephrology Progress Note ---
Addendum entered and electronically signed by Shay Gleason DO 05/30/18 14:16: I have personally performed a face to face evaluation on this patient. I have reviewed and agree with the care plan. History and Exam by me shows: Ongoing EUNICE, but not as bad after starting IVF, which suggests a pre-renal etiology. Continue IVF. Continue to follow a renal protective strategy. 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 Fall/presyncopal episode as per primary. Of note, he has a soft KELLY 2-3/[address] My colleague Dr. Stephens will be on-call/on-service starting tomorrow. Thank you. Original Note: Date of Encounter: 05/30/18 Time of Encounter: 09:37 - Assessment and Plan (1) EUNICE (acute kidney injury) Current Visit: Yes Status: Acute Baseline GFR 50 Scr and GFR much better at 2.48 and 31 UOP 450 Continue IV fluids Renal ultrasound unremarkable Avoid other nephrotoxins and renal dose. Strict I/O (2) HCAP (healthcare-associated pneumonia) Current Visit: Yes Status: Acute Per primary team (3) Fall Current Visit: Yes Status: Acute Fall precautions while inpatient. Qualifiers: Encounter type: initial encounter Qualified Code(s): W19.XXXA - Unspecified fall, initial encounter (4) Facial laceration Current Visit: Yes Status: Acute Sutured in ED Fall precautions in the hospital. Qualifiers: Encounter type: initial encounter Qualified Code(s): S01.81XA - Laceration without foreign body of other part of head, initial encounter Subjective Principal diagnosis: dementia, EUNICE, fall Interval history: Patient seen and examined. States he is feeling well; pleasant. Objective - Vital Signs Vital signs: Vital Signs Temp Pulse Resp BP Pulse Ox 05/30/18 07:31 98.7 F 63 18 147/80 95 05/30/18 03:47 99.1 F 66 18 154/75 95 05/29/18 23:42 98.7 F 64 16 134/74 97 05/29/18 22:15 68 05/29/18 20:17 17 96 05/29/18 19:31 98.0 F 70 18 128/65 97 05/29/18 16:03 97.6 F 62 18 133/70 95 05/29/18 13:23 97.6 F 62 18 150/71 97 05/29/18 13:20 97.6 F 62 18 150/71 97 05/29/18 12:15 22 115/68 05/29/18 11:44 66 20 107/59 94 Intake and Output 05/29/18 05/30/18 05/30/18 23:59 07:59 15:59 Intake Total 1130 / 1130 1000 / 1000 Output Total 250 / 250 350 / 350 300 / 300 Balance -250 / -250 780 / 780 700 / 700 Intake: IV Fluids 1100 / 1100 1000 / 1000 0.9 % Sodium Chloride 1,000 ML 1000 / 1000 1000 / 1000 @ 100 mls/hr IVC .Q10H [facility] Rx#: [id number] Zosyn 3.375 GM In 0.9 % Sodium 100 / 100 Chloride (Mini-Bag +) 100 ML @ 25 mls/hr IVPB Q12H [facility] Rx#: [id number] Oral 30 / 30 Output: Urine 250 / 250 350 / 350 300 / 300 Other: Weight 76.2 kg Patient Weight 05/30/18 23:59 Weight 76.2 kg - General Appearance General appearance: Present: well-developed, well-nourished EENT: Present: ATNC, mucous membranes moist, hearing intact, vision intact Neck: Present: supple Respiratory: Present: clear Cardiology: Present: no edema, normal S1, normal S2 Gastrointestinal: Present: no tenderness, no guarding Integumentary: Present: warm and dry Psychiatric: Present: mood/affect appropriate, cooperative - Lab 05/30/18 05:05 05/30/18 05:05 Most recent lab results Calcium 8.4 mg/dL (8.6-10.3) L 05/30/18 05:05 Urine Creatinine 114 mg/dL 05/29/18 18:34 Consult Discharge Plan - Plan Referrals: NONE,PCP [Primary Care Provider] -
[2018-05-30] MEDS: Budesonide/Formoterol 80/4.5 MDI IH SCH ×2 (10:17→22:23)
--- NOTE | 2018-05-30 11:02 | Electrocardiograph Report ---
[facility] [employer] Test Date: 2018-05-29 Pat Name: Shahbaz Jasmine Department: EXAM21 Room: 2N04 Gender: M Trash Man: : 1940 Requested By: Billy eL Order Number: [id number] Reading MD: David Titus Measurements Intervals [place] Rate: 54 P: 29 VT: 172 QRS: -63 QRSD: 139 T: -13 QT: 424 QTc: 402 Interpretive Statements Sinus rhythm Nonspecific IVCD with LAD Nonspecific T abnormalities, anterior leads Electronically Signed On 05-30-2018 11:00:44 EST by David Titus
[2018-05-31 05:06] LABS: Basophils % 0.5 %; Eosinophils # 0.2 K/mcL (0.0-0.6); Eosinophils % 2.4 %; Hematocrit 33.6 % (37.5-50.1); Hemoglobin 10.8 g/dL (12.9-16.9); Immature Granulocytes % 0.4 % (0-4); Lymphocytes # 1.2 K/mcL (0.6-4.6); Mean Corpuscular HGB Conc 32.1 g/dL (31.6-35.5); Mean Corpuscular Hemoglobin 27.4 pg (28.0-33.3); Mean Corpuscular Volume 85.3 fL (83.0-100.0); Mean Platelet Volume 11.6 fL (9.4-12.4); Monocytes # 0.7 K/mcL (0.0-1.3); Monocytes % 9.2 %; Neutrophils # 5.8 K/mcL (1.6-8.9); Platelet Count 227 K/mcL (140-400); Red Blood Count 3.94 M/mcL (4.19-5.50); Red Cell Distribution Width 15.5 % (11.5-14.5); Segmented Neutrophils % 72.5 %
[2018-05-31 05:24] LABS: Calcium 8.7 mg/dL (8.6-10.3); Potassium 4.7 mEq/L (3.5-5.1)
[2018-05-31] MEDS: *HR* Heparin 5,000 UNIT/ML VIAL SQ SCH ×2 (06:01→17:58)
[2018-05-31] MEDS ORDERED: Levofloxacin 500 MG/100 ML 500 MG/100 ML BAG IVPB SCH (07:00)
[2018-05-31] MEDS: Budesonide/Formoterol 80/4.5 MDI IH SCH ×2 (07:42→21:57)
[2018-05-31] MEDS: Gabapentin 100 MG CAPSULE PO SCH ×2 (08:48→21:56)
[2018-05-31] MEDS: Cholecalciferol (D-3) 1,000 UNIT TABLET PO SCH (08:48)
[2018-05-31] MEDS: D5% in 0.45% NACL 1,000 ML IVC SCH (10:35)
[2018-05-31] MEDS: Piperacillin/Tazobactam 3.375 GM in 0.9 % Sodium Chloride Mini Bag 100 ML IVPB SCH (10:35)
--- NOTE | 2018-05-31 10:57 | Internal Med Progress Note ---
Hospitalist Progress Note - Encounter Date of Encounter: 05/31/18 Time of Encounter: 10:42 - Subjective Interval History: Patient seen and examined this morning. Denies new complains. Denies chest pain, abdominal pain. Breathing better. No fever chills, N/V/D. - Exam Vitals: Temp Pulse Resp BP Pulse Ox 98.3 F 60 15 182/96 97 05/31/18 07:23 05/31/18 07:23 05/31/18 07:23 05/31/18 07:23 05/31/18 07:23 Exam: General: In no acute distress. Conversant. Rt forehead laceration with sutures in place. Respiratory exam: CTAB. no accessory muscle use, rales, rhonchi, wheezes Cardiovascular exam: RRR, +S1, +S2. no murmur, gallop, rubs. Rt TLC in jugular vein. GI/Abdominal exam: Non-tender, Non-distended, normal bowel sounds, soft, no peritoneal signs. Extremities exam: full ROM, no pedal edema, warm, pulses palpable in b/l lower extremities. no calf tenderness Neurological exam: CN II-XII intact, AO X2, no focal deficits. no pronater drift, facial droop, speech deficit Skin exam: Healing scabbed lesion on Rt chest. Mild cellulitic changes on Rt back with excoriated skin. - Assessment and Plan (1) Dementia Current Visit: No Status: Chronic (2) COPD (chronic obstructive pulmonary disease) Current Visit: No Status: Chronic (3) HTN (hypertension) Current Visit: No Status: Chronic (4) Anemia Current Visit: No Status: Chronic (5) Bradycardia Current Visit: Yes Status: Acute (6) Hypotension Current Visit: Yes Status: Acute (7) HCAP (healthcare-associated pneumonia) Current Visit: Yes Status: Acute (8) Fall Current Visit: Yes Status: Acute (9) [id number]-[id number] renal failure Current Visit: Yes Status: Acute (10) Sepsis Current Visit: Yes Status: Acute (11) DVT prophylaxis Current Visit: Yes Status: Acute (12) GERD (gastroesophageal reflux disease) Current Visit: Yes Status: Acute - Summary of Assessment and Plan Summary of Assessment and Plan: Sepsis - with leukocytosis and hypotensive on admission - CXR with signs of pneumonia with left lung consolidation. Rt back with skin excoriation with some signs of cellulitis. Others with scabbed lesion with recently finished course of valacyclovir for shingles. - c/w empiric IV antibiotics for pneumonia with zosyn. vancomycin and levaquin now stopped given negative MRSA and urine legionella and strep antigen in setting of EUNICE. No strong suspicion on MRSA pneumonia. Blood cultures 05/29 NGTD. - BP improved with IVF. Will stop IVF now. - Respiratory panel negative Hypotension - s/p IVF - TLC removed - stopped IVF. BP stable. resume home medication Bradycardia - Echocardiogram on 12/2017 showed LVEF of 60% with normal right ventricular structure and function - HR improved - limited echocardiogram with EF of 70-75 with hyperdynamic LV - c/w telemetry Fall - Patient was admitted on 01/04/18 and treated for syncope and pneumonia; echocardiogram and Dopplers in addition to head CT/MRI at that time without any acute findings and patient was treated for pneumonia. - CT of the head negative for acute findings and forehead laceration sutured in the ER - Patient mentioned he slipped on floor mat. - Not likely cardiac in nature. May have some component of hypotension. - c/w telemetry Fqlum-cw-[id number] renal failure - Possibly prerenal - improving with IVF. Will stop IVF given HTN and Hyperchloremia. encouraged PO intake. - US unremarkable except enlarged prostate. - Nephrology consulted and appreciate recommendations Anemia - chronic - stable. No signs of bleeding - Continue to monitor COPD - c/w home medication HTN - BP elevated. - Resume home medication GERD - Continue home dose of PPI Dementia - Continue patient's home medications DVT prophylaxis - Subcutaneous heparin has bedhold. - Time Spent with Patient Total time spent is greater than 50% in coordination of care (as documented) at patient's floor/unit and/or counseling patient: Internal Medicine: Result - Labs CBC & Chem 7: 05/31/18 04:25 05/31/18 04:25 Labs: Short CBC 05/31/18 Range/Units 04:25 WBC 8.0 (4.3-11.1) K/mcL Hgb 10.8 L (12.9-16.9) g/dL Hct 33.6 L (37.5-50.1) % Plt Count 227 (140-400) K/mcL Neutrophils # 5.8 (1.6-8.9) K/mcL BMP 05/31/18 04:25 Sodium 137 Potassium 4.7 Chloride 110 H Carbon Dioxide 20 L BUN 23 Creatinine 1.74 H Glucose 115 H Calcium 8.7 - ABG Interpretation ABG results: PT/INR, D-dimer PT 12.7 Seconds (9.4-12.1) H 05/29/18 05:27 Consult Discharge Plan - Plan Referrals: NONE,PCP [Primary Care Provider] - (1) Dementia Qualifiers: Dementia type: Alzheimer's disease Alzheimer's disease onset: unspecified onset Dementia behavioral disturbance: without behavioral disturbance Qualified Code(s): G30.9 - Alzheimer's disease, unspecified; F02.80 - Dementia in other diseases classified elsewhere without behavioral disturbance (2) COPD (chronic obstructive pulmonary disease) Qualifiers: COPD type: unspecified COPD Qualified Code(s): J44.9 - Chronic obstructive pulmonary disease, unspecified (3) HTN (hypertension) Qualifiers: Hypertension type: essential hypertension Qualified Code(s): I10 - Essential (primary) hypertension (4) Anemia Qualifiers: Anemia type: unspecified type Qualified Code(s): D64.9 - Anemia, unspecified (6) Hypotension Qualifiers: Hypotension type: unspecified hypotension type Qualified Code(s): I95.9 - Hypotension, unspecified (8) Fall Qualifiers: Encounter type: initial encounter Qualified Code(s): W19.XXXA - Unspecified fall, initial encounter (9) Hzhml-nn-odszddh renal failure Qualifiers: Chronic kidney disease stage: unspecified stage Qualified Code(s): N17.9 - Acute kidney failure, unspecified; N18.9 - Chronic kidney disease, unspecified (10) Sepsis Qualifiers: Sepsis type: sepsis due to unspecified organism Qualified Code(s): A41.9 - Sepsis, unspecified organism (12) GERD (gastroesophageal reflux disease) Qualifiers: Esophagitis presence: esophagitis presence not specified Qualified Code(s): K21.9 - Gastro-esophageal reflux disease without esophagitis
--- NOTE | 2018-05-31 12:52 | Nephrology Progress Note ---
Date of Encounter: 05/31/18 Time of Encounter: 12:52 - Assessment and Plan (1) EUNICE (acute kidney injury) Current Visit: Yes Status: Acute Baseline GFR 50 Scr and GFR much better Continue IV fluids Renal ultrasound unremarkable Avoid other nephrotoxins and renal dose. Strict I/O Will sign off. Call if questions or concerns. (2) HCAP (healthcare-associated pneumonia) Current Visit: Yes Status: Acute (3) Fall Current Visit: Yes Status: Acute Qualifiers: Encounter type: initial encounter Qualified Code(s): W19.XXXA - Unspecified fall, initial encounter (4) Facial laceration Current Visit: Yes Status: Acute Qualifiers: Encounter type: initial encounter Qualified Code(s): S01.81XA - Laceration without foreign body of other part of head, initial encounter Subjective Principal diagnosis: dementia, EUNICE, fall Interval history: Patient seen. He is asleep. Objective - Vital Signs Vital signs: Vital Signs Temp Pulse Resp BP Pulse Ox 05/31/18 12:01 98.3 F 56 16 147/82 97 05/31/18 07:23 98.3 F 60 15 182/96 97 05/31/18 04:35 98.3 F 69 18 174/67 97 05/30/18 22:24 14 95 05/30/18 20:20 98.6 F 62 16 145/72 94 Intake and Output 05/30/18 05/31/18 05/31/18 23:59 07:59 15:59 Intake Total 1100 / 1100 100 / 100 1395 / 1395 Output Total 500 / 500 100 / 100 Balance 600 / 600 0 / 0 1395 / 1395 Intake: IV Fluids 1100 / 1100 100 / 100 1075 / 1075 D5% And 0.45% Nacl 1000 Ml Bag 1000 / 1000 1075 / 1075 1,000 ML @ 75 mls/hr IVC . [id number] [facility] Rx#:[id number] Zosyn 3.375 GM In 0.9 % Sodium 100 / 100 100 / 100 Chloride (Mini-Bag +) 100 ML @ 25 mls/hr IVPB Q12H [facility] Rx#: [id number] Oral 0 / 0 0 / 0 320 / 320 Output: Urine 500 / 500 100 / 100 Other: Meal Breakfast Percent of Meal Consumed 0% # Urine Diapers 1 Weight 75.6 kg Patient Weight 05/31/18 23:59 Weight 75.6 kg - General Appearance General appearance: Present: well-developed, well-nourished EENT: Present: ATNC Neck: Present: supple - Lab 05/31/18 04:25 05/31/18 04:25 Most recent lab results Calcium 8.7 mg/dL (8.6-10.3) 05/31/18 04:25 Urine Creatinine 114 mg/dL 05/29/18 18:34 Consult Discharge Plan - Plan Referrals: NONE,PCP [Primary Care Provider] -
[2018-06-01] MEDS: Piperacillin/Tazobactam 3.375 GM in 0.9 % Sodium Chloride Mini Bag 100 ML IVPB SCH ×2 (00:39→14:03)
[2018-06-01 05:04] LABS: Calcium 8.7 mg/dL (8.6-10.3); Potassium 4.3 mEq/L (3.5-5.1)
[2018-06-01] MEDS: *HR* Heparin 5,000 UNIT/ML VIAL SQ SCH (06:16)
[2018-06-01] MEDS: Gabapentin 100 MG CAPSULE PO SCH (09:54)
[2018-06-01] MEDS: Cholecalciferol (D-3) 1,000 UNIT TABLET PO SCH (09:54)
[2018-06-01] MEDS: Budesonide/Formoterol 80/4.5 MDI IH SCH (10:42)
--- NOTE | 2018-06-01 11:13 | Discharge Summary ---
Orders not resulted at time of discharge: Pending orders 05/29/18 05:27 Culture,Blood [BC] Stat Date of Encounter: 06/01/18 Time of Encounter: 11:08 - Discharge Diagnosis (1) Dementia Priority: Secondary Status: Chronic Qualifiers: Dementia type: Alzheimer's disease Alzheimer's disease onset: unspecified onset Dementia behavioral disturbance: without behavioral disturbance Qualified Code(s): G30.9 - Alzheimer's disease, unspecified; F02.80 - Dementia in other diseases classified elsewhere without behavioral disturbance (2) COPD (chronic obstructive pulmonary disease) Priority: Secondary Status: Chronic Qualifiers: COPD type: unspecified COPD Qualified Code(s): J44.9 - Chronic obstructive pulmonary disease, unspecified (3) HTN (hypertension) Priority: Secondary Status: Chronic Qualifiers: Hypertension type: essential hypertension Qualified Code(s): I10 - Essential (primary) hypertension (4) Anemia Priority: Secondary Status: Chronic Qualifiers: Anemia type: unspecified type Qualified Code(s): D64.9 - Anemia, unspecified (5) Bradycardia Priority: Primary Status: Acute (6) Hypotension Priority: Primary Status: Acute Qualifiers: Hypotension type: unspecified hypotension type Qualified Code(s): I95.9 - Hypotension, unspecified (7) HCAP (healthcare-associated pneumonia) Priority: Primary Status: Acute (8) Fall Priority: Primary Status: Acute Qualifiers: Encounter type: initial encounter Qualified Code(s): W19.XXXA - Unspecified fall, initial encounter (9) Xmdmm-uw-ljebuax renal failure Priority: Primary Status: Acute Qualifiers: Chronic kidney disease stage: unspecified stage Qualified Code(s): N17.9 - Acute kidney failure, unspecified; N18.9 - Chronic kidney disease, unspecified (10) Sepsis Priority: Primary Status: Acute Qualifiers: Sepsis type: sepsis due to unspecified organism Qualified Code(s): A41.9 - Sepsis, unspecified organism (11) DVT prophylaxis Priority: Secondary Status: Acute (12) GERD (gastroesophageal reflux disease) Priority: Secondary Status: Acute Qualifiers: Esophagitis presence: esophagitis presence not specified Qualified Code(s): K21.9 - Gastro-esophageal reflux disease without esophagitis Hospital course: Mr. Jasmine is a 77 year old male with past medical history of dementia, COPD, CAD, hypertension, hypothyroidism who came on after a fall and was found to have hypotension and bradycardia and was started on treatment for sepsis from HCAP pneumonia with broad-spectrum antibiotics and IV fluids. Patient's home antihypertensive medications were held. Patient was also found to have EUNICE on CKD which was treated with IV fluids. Nephrology was consulted. EUNICE was thought to be due to prerenal cause as renal ultrasound was unremarkable. Antibiotics including vancomycin and Levaquin were discontinued quickly as patient improved with IV fluids and did not have any significant risk factors for MRSA as well as patient had EUNICE. Patient's home Coreg was resumed. Lisinopril was held during admission and on discharge given EUNICE. Patient's bradycardia likely related to his Coreg use. Currently asymptomatic as his blood pressure is normal and heart rate in 60s. Patient blood culture did not grow any organisms. Patient will be discharged with Augmentin to finish a 7 day course of antibiotics. Discharge discussed with: patient, nurse - Time Spent with Patient Total time spent providing and/or coordinating discharge services: Greater than 30 minutes (38) - Discharge Medications Prescriptions: Amoxicillin/Clavulanate [Augmentin] 875 mg PO BIDWM 3 Days #6 tablet Home Medications: Atorvastatin [Lipitor] 10 mg PO HS 01/04/18 [History] Calcium Carbonate/Vitamin D3 [Calcium 600 + Vit D Tablet] 1 tab PO DAILY 01/04/18 [History] Duloxetine HCl [Cymbalta] 60 mg PO DAILY 01/04/18 [History] Ergocalciferol (VITAMIN D2) [Vitamin D2] 50,000 unit PO QWEEK 01/04/18 [History] Fluticasone/Salmeterol [Advair 250-50 Diskus] 1 puff IH BID 01/04/18 [History] Gabapentin [Neurontin] 100 mg PO BID 01/04/18 [History] Galantamine HBr [Razadyne ER] 16 mg PO DAILY 01/04/18 [History] Memantine HCl [Memantine HCl ER] 14 mg PO DAILY 01/04/18 [History] Mv,Fe,Min/Lutein [A Thru Z [employer] Tablet] 1 tab PO DAILY 01/04/18 [History] Omeprazole [PriLOSEC] 20 mg PO DAILY 01/04/18 [History] Potassium Chloride [Klor-Con 10] 10 meq PO BID 01/04/18 [History] Aspirin Enteric Coated [Aspirin EC] 81 mg PO DAILY tablet. 01/07/18 [Rx] Carvedilol [Coreg] 12.5 mg PO BIDWM #60 tablet 01/07/18 [Rx] Tamsulosin [Flomax] 0.4 mg PO DAILY capsule 01/07/18 [Rx] Levothyroxine [Synthroid] 125 mcg PO DAILY 05/29/18 [History] Tramadol HCl [Ultram] 50 mg PO QID PRN 05/29/18 [History] Amoxicillin/Clavulanate [Augmentin] 875 mg PO BIDWM 3 Days #6 tablet 06/01/18 [Rx] Allergies/Adverse Reactions: Allergy/AdvReac Type Severity Reaction Status Date / Time No Known Allergies Allergy Verified 01/04/18 14:21 Date of admission: 05/29/18 12:07 Primary care physician: PCP NONE Consults: 05/29/18 09:38 Consult to Nephrology [CONS] Routine Consulting Provider: Kidney Carla/MONICA/SLEENA/KASSANDRA Reason for Consult: Acute on chronic renal failure Call Completed: Yes 05/29/18 17:06 Consult to Supervisor Wet Pour [CONS] Routine Reason for SW Consult: From [facility] 05/30/18 08:53 Consult to Nurse Navigator [CONS] Routine Comment: pneumonia Discharging clinician: Stephen Hedrick - Constitutional Vitals: Temp Pulse Resp BP Pulse Ox 98.7 F 72 14 140/82 94 06/01/18 09:49 06/01/18 09:49 06/01/18 10:44 06/01/18 09:49 06/01/18 10:44 Exam: General: In no acute distress. Conversant. Rt forehead laceration with sutures in place. Respiratory exam: CTAB. no accessory muscle use, rales, rhonchi, wheezes Cardiovascular exam: RRR, +S1, +S2. no murmur, gallop, rubs. GI/Abdominal exam: Non-tender, Non-distended, normal bowel sounds, soft, no peritoneal signs. Extremities exam: full ROM, no pedal edema, warm, pulses palpable in b/l lower extremities. no calf tenderness Neurological exam: CN II-XII intact, AO X2, no focal deficits. no pronater drift, facial droop, speech deficit Skin exam: Healing scabbed lesion on Rt chest. Mild cellulitic changes on Rt back with excoriated skin. - Patient Status Disposition: Transfer SNF Condition: Serious - Discharge Instructions Follow Up With: NONE,PCP [Primary Care Provider] - - Diet and Activity Activity: as per physical therapy
--- NOTE | 2018-06-01 11:17 | Physician Discharge Referral ---
ExtendedCare Referral Info Institutional Level of Care: Skilled - Diagnosis (1) Dementia Status: Chronic (2) COPD (chronic obstructive pulmonary disease) Status: Chronic (3) HTN (hypertension) Status: Chronic (4) Anemia Status: Chronic (5) Bradycardia Status: Acute (6) Hypotension Status: Acute (7) HCAP (healthcare-associated pneumonia) Status: Acute (8) Fall Status: Acute (9) Uoxdx-qc-kmhifio renal failure Status: Acute (10) Sepsis Status: Acute (11) DVT prophylaxis Status: Acute (12) GERD (gastroesophageal reflux disease) Status: Acute - Transfer Medications Prescriptions: Amoxicillin/Clavulanate [Augmentin] 875 mg PO BIDWM 3 Days #6 tablet Home Medications: Atorvastatin [Lipitor] 10 mg PO HS 01/04/18 [History] Calcium Carbonate/Vitamin D3 [Calcium 600 + Vit D Tablet] 1 tab PO DAILY 01/04/18 [History] Duloxetine HCl [Cymbalta] 60 mg PO DAILY 01/04/18 [History] Ergocalciferol (VITAMIN D2) [Vitamin D2] 50,000 unit PO QWEEK 01/04/18 [History] Fluticasone/Salmeterol [Advair 250-50 Diskus] 1 puff IH BID 01/04/18 [History] Gabapentin [Neurontin] 100 mg PO BID 01/04/18 [History] Galantamine HBr [Razadyne ER] 16 mg PO DAILY 01/04/18 [History] Memantine HCl [Memantine HCl ER] 14 mg PO DAILY 01/04/18 [History] Mv,Fe,Min/Lutein [A Thru Z [employer] Tablet] 1 tab PO DAILY 01/04/18 [History] Omeprazole [PriLOSEC] 20 mg PO DAILY 01/04/18 [History] Potassium Chloride [Klor-Con 10] 10 meq PO BID 01/04/18 [History] Aspirin Enteric Coated [Aspirin EC] 81 mg PO DAILY tablet. 01/07/18 [Rx] Carvedilol [Coreg] 12.5 mg PO BIDWM #60 tablet 01/07/18 [Rx] Tamsulosin [Flomax] 0.4 mg PO DAILY capsule 01/07/18 [Rx] Levothyroxine [Synthroid] 125 mcg PO DAILY 05/29/18 [History] Tramadol HCl [Ultram] 50 mg PO QID PRN 05/29/18 [History] Amoxicillin/Clavulanate [Augmentin] 875 mg PO BIDWM 3 Days #6 tablet 06/01/18 [Rx] Allergies/Adverse Reactions: Allergy/AdvReac Type Severity Reaction Status Date / Time No Known Allergies Allergy Verified 01/04/18 14:21 - Respiratory Orders Smoking Cessation: Smoking cessation has been advised. For more information, call the [place] Tobacco Quit Line at 5-207-PBHC-NOW. CERTIFICATION: I certify that the transfer of the above named patient to an Extended Care Facility is necessary for the continuing treatment of the diagnosis listed. The above information is true and accurate reflection of patient's current condition. Confidential - Redisclosure prohibited without a patient's written consent.
[2018-06-01 13:50] VITALS: BP 153/89
== END 2018-06-01 15:03 | DRG 871 ==
LOC: EMEROOARM 03:46 → SUATTDRO 12:07 → 2NNU 12:07 → 3ANU 05-30 16:29
PROVIDERS: ADMIT Internal Medicine; ATTEND Internal Medicine